=== PATIENT | female | born 1990 | race American Indian/Alaskan Native ===

== ENCOUNTER 2016-11-28 18:42 | Emergency (ER) | payer OTHER ==
[~2016-11-28] VITALS: Ht 165.1 cm; Wt 81.2 kg
[~2016-11-28 18:42] MED LIST: AMOXICILLIN500 MG PO; IBUPROFEN600 MG PO; IRON160 MG PO; PRENATAL CAPLE1 EACH PO
[2016-11-28] MEDS ORDERED: PENICILLIN V P500 MG PO (23:18)
[2016-11-28] MEDS ORDERED: TRAMADOL HCL50 MG PO (23:39)
== END 2016-11-28 23:51 | disposition home or self-care (01) ==
LOC: ED 18:42
DX: K08.89 Other specified disorders of teeth and supporting structures (principal); Z79.899 Other long term (current) drug therapy
CPT/HCPCS: 99283

== ENCOUNTER 2017-01-16 04:01 | Emergency (ER) | payer OTHER ==
[~2017-01-16] VITALS: Ht 165.1 cm; Wt 81.2 kg
[~2017-01-16 04:01] MED LIST changes: +PENICILLIN V P500 MG PO; +TRAMADOL HCL50 MG PO
--- OUTSIDE RECORDS SUMMARY | 2017-01-16 06:08 | XMS | Clinical Summary ---
Demographics + + + | Address | [address] | | | [place] [address] | + + + | Home Phone | | + + + | Preferred Language | Unknown | + + + | Marital Status | Single | + + + | Presybeterian Affiliation | NON | + + + | Race | or | + + + | Ethnic Group | Not or | + + + Author + + + | Author | NON REVENUE LOCATIONS | + + + | Organization | NON REVENUE LOCATIONS | + + + | Address | Unknown | + + + | Phone | Unavailable | + + + Support +------+ + + + + | Name | Relationship | Address | Phone | +------+ + + + + ECON | [address] | | [place] [address] | +------+ + + + + ECON | Unknown | | +------+ + + + + Care Team Providers + +------+ + | Care Loan Manager Name | Role | Phone | + +------+ + | No Pcp Per Patient | PP | Unavailable | + +------+ + Source Comments HENRY is fully live on both [facility] and [facility] In[facility] Allergies No Known Allergies Current Medications + + + +---------+------+------+-------+ | Prescription | Sig. | Disp. | Refills | Star | End | Statu | | | | | | t | Date | s | | | | | | Date | | | + + + +---------+------+------+-------+ | | Take 1-2 Tabs by | 10 Tab | 0 | 09/2 | | Activ | | HYDROcodone-acetamin | mouth every four | | | 7/20 | | e | | ophen (VICODIN) | hours as needed for | | | 12 | | | | 5-500 mg Oral tablet | moderate pain. Not | | | | | | | | to exceed 6 tablets | | | | | | | | per any 24 hour | | | | | | | | period. (Not to | | | | | | | | exceed 3250 mg of | | | | | | | | acetaminophen from | | | | | | | | all products per 24 | | | | | | | | hour period.) | | | | | | + + + +---------+------+------+-------+ | ibuprofen 600 mg | Take 1 Tab by mouth | 30 Tab | 0 | 09/2 | | Activ | | Oral tablet | every six hours as | | | 7/20 | | e | | | needed. | | | 12 | | | + + + +---------+------+------+-------+ | doxycycline | Take 1 Tab by mouth | 6 Tab | 0 | 09/2 | | Activ | | hyclate 100 mg Oral | every twelve hours. | | | 7/20 | | e | | tablet | Start by taking 2 | | | 12 | | | | | tabs tonight. | | | | | | + + + +---------+------+------+-------+ Active Problems No known active problems Social History + +-------+ +--------+------+ | Tobacco Use | Types | Packs/Day | Years | Date | | | | | Used | | + +-------+ +--------+------+ | Never Smoker | | | | | + +-------+ +--------+------+ + +---+---+---+ | Smokeless Tobacco: | | | | | Never Used | | | | + +---+---+---+ + + +---------+ + | Alcohol Use | Drinks/We | oz/Week | Comments | | | ek | | | + + +---------+ + | No | | | | + + +---------+ + + + + + | Currently | Estimated Date of Delivery | Comments | + + + + | Yes | | | + + + + + + + | Sex Assigned at | Date Recorded | | | | + + + | Not on file | | + + + Last Filed Vital Signs + + + + | Vital Sign | Reading | Time Taken | + + + + | Blood Pressure | 107/68 | 11/20/2011 4:54 PM PDT | + + + + | Pulse | 72 | 11/20/2011 4:54 PM PDT | + + + + | Temperature | 37.1 C (98.8 F) | 11/20/2011 4:05 PM PDT | + + + + | Respiratory Rate | 16 | 11/20/2011 4:54 PM PDT | + + + + | Oxygen Saturation | 100% | 11/20/2011 4:54 PM PDT | + + + + | Inhaled Oxygen | - | - | | Concentration | | | + + + + | Weight | 66.2 kg (146 lb) | 11/20/2011 12:00 PM PDT | + + + + | Height | 165.1 cm (5' 5") | 11/20/2011 12:00 PM PDT | + + + + | Body Mass Index | 24.3 | 11/20/2011 12:00 PM PDT | + + + + Plan of Treatment + + + + + | Health Maintenance | Due Date | Last Done | Comments | + + + + + | INFLUENZA VACCINE | | | | | (FLU SHOT) | 7 | | | + + + + + Results Not on filefrom Last 3 Months
== END 2017-01-16 06:25 | disposition home or self-care (01) ==
LOC: ED 04:01
DX: R42 Dizziness and giddiness (principal); R11.2 Nausea with vomiting, unspecified; Z79.899 Other long term (current) drug therapy; F17.200 Nicotine dependence, unspecified, uncomplicated
CPT/HCPCS: 80053; 81001; 84703; 85025; 96360; 96361; 99283; G0480; J7030

== ENCOUNTER 2017-07-14 16:40 | Emergency (ER) | payer OTHER ==
[~2017-07-14] VITALS: Ht 165.1 cm; Wt 79.8 kg
[2017-07-14] MEDS ORDERED: CYCLOBENZAPRINE10 MG PO (20:34)
[2017-07-14] MEDS ORDERED: DICLOFENAC SODI75 MG PO (20:34)
== END 2017-07-14 20:51 | disposition home or self-care (01) ==
LOC: ED 16:40
DX: S30.0XXA Contusion of lower back and pelvis, initial encounter (principal); S20.229A Contusion of unspecified back wall of thorax, initial encounter; F17.200 Nicotine dependence, unspecified, uncomplicated; W10.9XXA Fall (on) (from) unspecified stairs and steps, initial encounter
CPT/HCPCS: 72125; 72128; 72131; 99284

== ENCOUNTER 2018-08-24 18:51 | Emergency (ER) | payer OTHER ==
[~2018-08-24] VITALS: Ht 165.1 cm; Wt 88.0 kg
[~2018-08-24 18:51] MED LIST changes: +CYCLOBENZAPRINE10 MG PO; +DICLOFENAC SODI75 MG PO; +NORCO 5-325 TA1 EACH PO
[2018-08-24] MEDS ORDERED: PROTONIX40 MG PO (21:17)
== END 2018-08-24 21:34 | disposition home or self-care (01) ==
LOC: ED 18:51
DX: R10.12 Left upper quadrant pain (principal); F10.10 Alcohol abuse, uncomplicated; Y90.0 Blood alcohol level of less than 20 mg/100 ml; F17.200 Nicotine dependence, unspecified, uncomplicated
CPT/HCPCS: 80053; 81001; 83690; 84703; 85025; 96365; 96366; 99283-25; G0480; J3411; J7030

== ENCOUNTER 2019-09-06 20:10 | Emergency (ER) | payer OTHER ==
[~2019-09-06] VITALS: Ht 165.1 cm; Wt 77.1 kg
--- OUTSIDE RECORDS SUMMARY | ~2019-09-06 | XMS | Encounter Summary ---
Demographics + + + | Address | [address] | | | [place] [address] | + + + | Home Phone | | + + + | Preferred Language | Unknown | + + + | Marital Status | Single | + + + | Jainism Affiliation | NON | + + + | Race | or | + + + | Ethnic Group | Not or | + + + Author + + + | Author | [facility] [employer] [facility] | + + + | Organization | [facility] [employer] [facility] | + + + | Address | Unknown | + + + | Phone | Unavailable | + + + Support + + + + + | Name | Relationship | Address | Phone | + + + + + | Andrea Warrenfabiánelbree | ECON | [address] | | | | | [place] [address] | | + + + + + | Art Gauthier | ECON | Unknown | | + + + + + Care Team Providers + +------+ + | Care Senior Asset Manager Name | Role | Phone | + +------+ + | No Pcp Per Patient | PCP | Unavailable | + +------+ + Reason for Visit + + + | Reason | Comments | + + + | Lab findings, | | | teaching, guidance, | | | and counseling | | + + + Encounter Details +--------+ + + + + | Date | Type | Department | Care Team | Description | +--------+ + + + + | 11/18/ | [facility]phone [facility] | Mralys Breaux | Lab findings, | | 2011 | | [facility] | MD Bree [address] [address] | teaching, guidance, | | | | [address] | and counseling | | | | [address] | [place], [place] | | | | | Laila, [address] [place] [address] | [address] | | | | | [place], [place] | [phone] | | | | | [address] | | | | | | [phone] | | | +--------+ + + + + Social History + +-------+ +--------+------+ | Tobacco Use | Types | Packs/Day | Years | Date | | | | | Used | | + +-------+ +--------+------+ | Never Assessed | | | | | + +-------+ +--------+------+ + + + | Sex Assigned at | Date Recorded | | | | + + + | Not on file | | + + + + + + + | Job Start Date | Occupation | Industry | + + + + | Not on file | Not on file | Not on file | + + + + + + + + | Travel History | Travel Start | Travel End | + + + + + + | No recent travel history available. | + + documented as of this encounter Plan of Treatment Not on filedocumented as of this encounter Visit Diagnoses Not on filedocumented in this encounter"
--- OUTSIDE RECORDS SUMMARY | ~2019-09-06 | XMS | Encounter Summary ---
Demographics + + + | Address | [address] | | | [place] [address] | + + + | Home Phone | | + + + | Preferred Language | Unknown | + + + | Marital Status | Single | + + + | Advent Affiliation | NON | + + + | Race | or | + + + | Ethnic Group | Not or | + + + Author + + + | Author | [facility] [employer] [facility] | + + + | Organization | [facility] [employer] [facility] | + + + | Address | Unknown | + + + | Phone | Unavailable | + + + Support + + + + + | Name | Relationship | Address | Phone | + + + + + | Andrea Warrenfaibánelbree | ECON | [address] | | | | | [place] [address] | | + + + + + | Art Gauthier | ECON | Unknown | | + + + + + Care Team Providers + +------+ + | Care Filler Spreader Name | Role | Phone | + +------+ + | No Pcp Per Patient | PCP | Unavailable | + +------+ + Reason for Visit AUTH/CERT +--------+--------+ + + + + | Status | Reason | Specialty | Diagnoses / | Referred By | Referred To | | | | | Procedures | Contact | Contact | +--------+--------+ + + + + | Closed | | | | | | +--------+--------+ + + + + Encounter Details +--------+ + + + + | Date | Type | Department | Care Team | Description | +--------+ + + + + | 11/19/ | Anesthesia | 4N INTRA OP 3161 | Naeem Crocker MD | | | 2011 | Event | [address] | [address] | | | | | [place] | [place], | | | | | Ambulatory Surgery | [place] [address] | | | | | Admitting Desk | [phone] | | | | | Located on the [facility] | | | | | | floor, Room 4519 | Jyoti Morrissey MD | | | | | [place], [place] | [address] | | | | | [address] | [address] | | | | | | [place], [place] | | | | | | [address] | | | | | | [phone] | | | | | | | | +--------+ + + + + Anesthesia Record + + + + + | Procedure Name | Responsible | Anesthesia Start | Anesthesia Stop Time | | | Anesthesiologist | Time | | + + + + + | DILATION AND | Naeem Crocker MD | 11/20/11 1359 | 11/20/11 4649 | | EVACUATION (N/A | | | | | Vagina) | | | | + + + + + +----+---+ + + | Da | T | Event | Comment | | te | i | | | | | m | | | | | e | | | +----+---+ + + | 09 | 1 | Pt. Check | Prior to anesthesia start, pt. Identified, examined, chart | | /2 | 3 | | reviewed, PARQ held, anesthetic plan made or approved by | | 8/ | 3 | | attending anesthesiologist. NPO status confirmed as appropriate | | 20 | 5 | | for procedure Preoperative evaluation: unchanged | | 12 | | | | +----+---+ + + | | 1 | Eq Check | Anesthesia machine checked Equipment verified | | | 3 | | | | | 5 | | | | | 9 | | | +----+---+ + + | | 1 | An Start | | | | 3 | | | | | 5 | | | | | 9 | | | +----+---+ + + | | 1 | An Start | | | | 4 | Data | | | | 0 | | | | | 5 | | | +----+---+ + + | | 1 | Vitals | Monitors applied Vital signs checked Patient ready for anesthesia | | | 4 | Checked | | | | 1 | | | | | 1 | | | +----+---+ + + | | 1 | Ready | | | | 4 | | | | | 1 | | | | | 1 | | | +----+---+ + + | | 1 | Abx held | | | | 4 | Not Ordered | | | | 1 | | | | | 5 | | | +----+---+ + + | | 1 | Timeout | | | | 4 | | | | | 1 | | | | | 5 | | | +----+---+ + + | | 1 | Incision | | | | 4 | | | | | 1 | | | | | 7 | | | +----+---+ + + | | 1 | Surgery end | | | | 4 | | | | | 4 | | | | | 9 | | | +----+---+ + + | | 1 | an naeem now | | | | 4 | | | | | 5 | | | | | 2 | | | +----+---+ + + | | 1 | an stop | | | | 4 | data | | | | 5 | | | | | 2 | | | +----+---+ + + | | 1 | Anesthesia | | | | 4 | End | | | | 5 | | | | | 9 | | | +----+---+ + + +------+ | Meds | +------+ + + + | Name | Total | + + + | midazolam | 3 mg | + + + | propofol INF | 456,780 mcg | + + + | propofol | 90 mg | + + + | methylergonovine | 0.4 mg | + + + | misoprostol | 800 mcg | + + + | LR | 900 mL | + + + + + | Name | + + | O2 Flow Rate (Total Liters) | + + + + | No blood administrations on file. | + + +--------+ + + + | Type | Details | Placement | Removal | +--------+ + + + | RETIRE | 11/20/11; 1245; 11/20/11; 1712; | 11/20/11 1245 by | 09/28/12 1712 by | | D - | No; 20; Right; Antecubital; | Lucille Landers | Aylin Cheek RN | | Periph | Lidocaine; No; Positive; Therapy | CLAUDIA Zheng | | | robson | completed | | | | Line | | | | +--------+ + + + documented in this encounter Social History + +-------+ +--------+------+ | Tobacco [...] Visit Diagnoses Not on filedocumented in this encounter Administered Medications + + + +------+------+------+ | Medication Order | MAR | Action | Dose | Rate | Site | | | Action | Date | | | | + + + +------+------+------+ | lactated ringers IV | given by | 11/20/19 | mL | | | | INTRAPROCEDURE CONTINUOUS PRN, | | 12 2:55 | | | | | Starting 11/20/11 at 1359, | anesthes | PM PDT | | | | | Until 11/20/11 at 1459 | iology | | | | | + + + +------+------+------+ +---------+ +----+---+---+ | New Bag | 11/20/19 | mL | | | | | 12 1:59 | | | | | | PM PDT | | | | +---------+ +----+---+---+ +---+---+ | | | +---+---+ + +-------+ +--------+---+---+ | methylergonovine (aka | Given | 11/20/19 | 0.2 mg | | | | METHERGINE) injection | | 12 2:40 | | | | | INTRAPROCEDURE PRN, Starting Fri | | PM PDT | | | | | 11/20/11 at 1432, Until Fri | | | | | | | 11/20/11 at 1452 | | | | | | + +-------+ +--------+---+---+ +-------+ +--------+---+---+ | Given | 11/20/19 | 0.2 mg | | | | | 12 2:32 | | | | | | PM PDT | | | | +-------+ +--------+---+---+ +---+---+ | | | +---+---+ + +-------+ +------+---+---+ | midazolam (aka VERSED) | Given | 11/20/19 | 3 mg | | | | injection INTRAPROCEDURE PRN, | | 12 1:59 | | | | | Starting Wed11/20/11 at 1359, | | PM PDT | | | | | Until Wed11/20/11 at 1452, | | | | | | | sedation | | | | | | + +-------+ +------+---+---+ +---+---+ | | | +---+---+ + +-------+ +---------+---+---+ | misoprostol (aka CYTOTEC) | Given | 11/20/19 | 800 mcg | | | | tablet INTRAPROCEDURE PRN, | | 12 2:43 | | | | | Starting 11/20/11 at 1443, | | PM PDT | | | | | Until 11/20/11 at 1452 | | | | | | + +-------+ +---------+---+---+ +---+---+ | | | +---+---+ + + + + +--------+---+ | propofol (aka TAERIVAN) | Rate/Dos | 11/20/19 | 150 | 59.58 | | | injection INTRAPROCEDURE | e Change | 12 2:19 | mcg/kg/m | mL/hr | | | CONTINUOUS PRN, Starting Fri | | PM PDT | in | | | | 11/20/11 at 1405, Until Fri | | | | | | | 11/20/11 at 1452 | | | | | | + + + + +--------+---+ + + + +--------+---+ | Rate/Dose Change | 11/20/19 | 200 | 79.44 | | | | 12 2:12 | mcg/kg/m | mL/hr | | | | PM PDT | in | | | + + + +--------+---+ | New Bag | 11/20/19 | 250 | 99.3 | | | | 12 2:05 | mcg/kg/m | mL/hr | | | | PM PDT | in | | | + + + +--------+---+ +---+---+ | | | +---+---+ + +-------+ +-------+---+---+ | propofol INTRAPROCEDURE PRN, | Given | 11/20/19 | 30 mg | | | | Starting Wed11/20/11 at 1408, | | 12 2:22 | | | | | Until Wed11/20/11 at 1452 | | PM PDT | | | | + +-------+ +-------+---+---+ +-------+ +-------+---+---+ | Given | 11/20/19 | 40 mg | | | | | 12 2:12 | | | | | | PM PDT | | | | +-------+ +-------+---+---+ | Given | 11/20/19 | 20 mg | | | | | 12 2:08 | | | | | | PM PDT | | | | +-------+ +-------+---+---+ +---+---+ | | | +---+---+ documented in this encounter"
--- OUTSIDE RECORDS SUMMARY | ~2019-09-06 | XMS | Encounter Summary ---
Demographics + + + | Address | [address] | | | [place] [address] | + + + | Home Phone | | + + + | Preferred Language | Unknown | + + + | Marital Status | Single | + + + | Hinduism Affiliation | NON | + + + | Race | or | + + + | Ethnic Group | Not or | + + + Author + + + | Author | [facility] | + + + | Organization | [facility] [employer] [facility] | + + + | Address | Unknown | + + + | Phone | Unavailable | + + + Support + + + + + | Name | Relationship | Address | Phone | + + + + + | Andrea Warrenfabiánelbree | ECON | [address] | | | | | [place] [address] | | + + + + + | Art Gauthier | ECON | Unknown | | + + + + + Care Team Providers + +------+ + | Care Hot Knife Foxing Cutter Name | Role | Phone | + [...] | Event | [address] | [address] | | | | | [place] | [place], | | | | | Ambulatory Surgery | [place] [address] | | | | | Admitting Desk | [phone] | | | | | Located on the [facility] | | | | | | floor, Room 4519 | Jyoti Morrissey MD | | | | | [place], [place] | [address] | | | | | [address] | [address] | | | | | | [place], [place] | | | | | | [address] | | | | | | [phone] | | | | | | | | +--------+ + + + + Anesthesia Record + + + + + | Procedure Name | Responsible | Anesthesia Start | Anesthesia Stop Time | | | Anesthesiologist | Time | | + + + + + | DILATION AND | Naeem Crocker MD | 11/20/11 1359 | 11/20/11 3681 | | EVACUATION (N/A | | | [...]
--- OUTSIDE RECORDS SUMMARY | ~2019-09-06 | XMS | Encounter Summary ---
Demographics + + + | Address | [address] | | | [place] [address] | + + + | Home Phone | | + + + | Preferred Language | Unknown | + + + | Marital Status | Single | + + + | Gnosticism Affiliation | NON | + + + | Race | or | + + + | Ethnic Group | Not or | + + + Author + + + | Author | [facility] | + + + | Organization | [facility] [employer] [facility] | + + + | Address | Unknown | + + + | Phone | Unavailable | + + + Support + + + + + | Name | Relationship | Address | Phone | + + + + + | Andrea Brianafabiánelbree | ECON | [address] | | | | | [place] [address] | | + + + + + | Art Gauthier | ECON | Unknown | | + + + + + Care Team Providers + +------+ + | Care Chrome Cleaner Name | Role | Phone | + +------+ + | No Pcp Per Patient | PCP | Unavailable | + +------+ + Reason for Referral Consult to [place] (Routine) +--------+--------+ + + + + | Status | Reason | Specialty | Diagnoses / | Referred By | Referred To | | | | | Procedures | Contact | Contact | +--------+--------+ + + + + | Closed | | Obstetrics & | Diagnoses | Sae[place], | [facility] | | | | Gynecology | | Marlys Edwards, | [address] | | | | | test | MD [address] | [address] | | | | | positive | [address] [place] | Aaron | | | | | Procedures | [address] | [place]a, [facility] | | | | | REQUEST TO | [place], [place] | floor | | | | | SURGERY | [address] | [place], [place] | | | | | PRODUCT ADVISOR | Phone: | [address] | | | | | | [phone] | Phone: | | | | | | Fax: | [phone] | | | | | | [phone] | Fax: | | | | | | | [phone] | +--------+--------+ + + + + Reason for Visit + + + | Reason | Comments | + + + | Appointment | | + + + Encounter Details +--------+ + + + + | Date | Type | Department | Care Team | Description | +--------+ + + + + | 11/18/ | [facility]phone | [facility] | Marlys Breaux | Appointment | | 2011 | | [facility] [place] | MD Bree [address] [facility] | | | | | Pavilion [address] | [facility] | | | | | [address] | [place], [place] | | | | | Pavilion, [facility] floor | [address] | | | | | [place], [place] | [phone] | | | | | [address] | | | | | | [phone] | | | +--------+ + + + [...] Not on filedocumented as of this encounter Results TYPE AND SCREEN (11/19/2011 10:57 AM PDT) + + + + + + | Component | Value | Ref Range | Performed | Pathologist | | | | | At | Signature | + + + + + + | ABO Group | O | | [facility] | | | | | | DEPARTMENT | | | | | | OF | | | | | | PATHOLOGY | | + + + + + + | Rh Type | Positive | | [facility] | | | | | | DEPARTMENT | | | | | | OF | | | | | | PATHOLOGY | | + + + + + + | Antibody | Negative | | [facility] | | | Screen | | | DEPARTMENT | | | | | | OF | | | | | | PATHOLOGY | | + + + + + + + + | Specimen | + + | Blood - Blood | + + + + + + + | Performing | Address | City/State/Zipcode | Phone Number | | Organization | | | | + + + + + | [facility] | [address] | [place] [address] | | | PATHOLOGY | [address] | | | + + + + + CBC ONLY (11/19/2011 10:57 AM PDT) + + + + + + | Component | Value | Ref Range | Performed | Pathologist | | | | | At | Signature | + + + + + + | WHITE CELL | 6.3 | 4.4 - 11.0 K/cu | [facility] | | | COUNT | | mm | DEPARTMENT | | | | | | OF | | | | | | PATHOLOGY | | + + + + + + | RED CELL | 3.86 (L) | 4.00 - 5.20 | [facility] | | | COUNT | | M/cu mm | DEPARTMENT | | | | | | OF | | | | | | PATHOLOGY | | + + + + + + | HEMOGLOBIN | 8.8 (L) | 12.0 - 16.0 | [facility] | | | | | g/dL | DEPARTMENT | | | | | | OF | | | | | | PATHOLOGY | | + + + + + + | HEMATOCRIT | 27.1 (L) | 36.0 - 46.0 % | [facility] | | | | | | DEPARTMENT | | | | | | OF | | | | | | PATHOLOGY | | + + + + + + | MCV | 70.3 (L) | 80.0 - 96.0 fL | [facility] | | | | | | DEPARTMENT | | | | | | OF | | | | | | PATHOLOGY | | + + + + + + | MCHC | 32.4 (L) | 33.4 - 35.5 | [facility] | | | | | g/dL | DEPARTMENT | | | | | | OF | | | | | | PATHOLOGY | | + + + + + + | RDW | 22.2 (H) | 11.5 - 15.0 % | [facility] | | | | | | DEPARTMENT | | | | | | OF | | | | | | PATHOLOGY | | + + + + + + | PLATELET | Clumped. | 150 - 400 K/cu | [facility] | | | COUNT | | mm | DEPARTMENT | | | | | | OF | | | | | | PATHOLOGY | | + + + + + + | CBC | Platelet Clumping | | [facility] | | | COMMENTS | Phoned. | | DEPARTMENT | | | | | | OF | | | | | | PATHOLOGY | | + + + + + + + + | Specimen | + + | Blood - Blood | + + + + + | Narrative | Performed At | + + + | * Corrected 11/19/11 15:23: MPV, prev report: 11.6 * Corrected | [facility] | | 11/19/11 15:27: HPANEL COMMENTS, prev report: Not reported | DEPARTMENT OF | | | PATHOLOGY | + + + + + + + + | Performing | Address | City/State/Zipcode | Phone Number | | Organization | | | | + + + + + | [facility] | [address] | [place] [address] | | | PATHOLOGY | [address] | | | + + + + + documented in this encounter Visit Diagnoses + + | Diagnosis | + + | test positive - Primary examination or test, positive result | + + documented in this encounter"
--- OUTSIDE RECORDS SUMMARY | ~2019-09-06 | XMS | Encounter Summary ---
Demographics + + + | Address | [address] | | | [place] [address] | + + + | Home Phone | | + + + | Preferred Language | Unknown | + + + | Marital Status | Single | + + + | Roman Catholic Affiliation | NON | + + + | Race | or | + + + | Ethnic Group | Not or | + + + Author + + + | Author | [facility] [employer] [facility] | + + + | Organization | [facility] [employer] [facility] | + + + | Address | Unknown | + + + | Phone | Unavailable | + + + Support + + + + + | Name | Relationship | Address | Phone | + + + + + | Andrea Brianafabiánelbree | ECON | [address] | | | | | [place] [address] | | + + + + + | Art Gauthier | ECON | Unknown | | + + + + + Care Team Providers + +------+ + | Care Etcher Apprentice Photoengraving Name | Role | Phone | + [...] | Procedures | [address] | [place], [facility] | | | | | REQUEST TO | [place], [place] | floor | | | | | SURGERY | [address] | [place], [place] | | | | | DIALYSIS EQUIPMENT TECHNICIAN | Phone: | [address] | | | | | | [phone] | Phone: | | | | | | Fax: | [phone] | | | | | | [phone] | Fax: | | | | | | | [phone] | +--------+--------+ + + + + Reason [...] | | 2011 | | [facility] [place] | MD Bree [address] [facility] | | | | | [address] | [facility] | | | | | [address] | [place], [place] | | | | | Pavilion, [facility] floor | [address] | | | | | [place], [place] | [phone] | | | | | [address] | | | | | | [phone] | | | +--------+ + + + [...] | + + + + + | [facility] | [address] | [place] [address] | | | PATHOLOGY | [address] [...] | + + + + + | [facility] | [address] | [place] [address] | | | PATHOLOGY | [address] | | | + + + + + documented in this encounter Visit Diagnoses + + | Diagnosis | + + | test positive - Primary examination or test, positive result | + + documented in this encounter"
--- OUTSIDE RECORDS SUMMARY | ~2019-09-06 | XMS | Encounter Summary ---
Demographics + + + | Address | [address] | | | [place] [address] | + + + | Home Phone | | + + + | Preferred Language | Unknown | + + + | Marital Status | Single | + + + | Faith Affiliation | NON | + + + | Race | or | + + + | Ethnic Group | Not or | + + + Author + + + | Author | [facility] [employer] [facility] | + + + | Organization | [facility] [employer] [facility] | + + + | Address | Unknown | + + + | Phone | Unavailable | + + + Support + + + + + | Name | Relationship | Address | Phone | + + + + + | Andrea Brianafabiánelbree | ECON | [address] | | | | | [place] [address] | | + + + + + | Art Gauthier | ECON | Unknown | | + + + + + Care Team Providers + +------+ + | Care Practice Representative Name | Role | Phone | + +------+ + | No Pcp Per Patient | PCP | Unavailable | + +------+ + Encounter Details +--------+------+ + + + | Date | Type | Department | Care Team | Description | +--------+------+ + + + | 11/18/ | Lab | [facility] at [facility] | | test | | 2011 | | [address] | | positive | | | | [facility] | | | | | | [place], [address] floor | | | | | | [place], [place] | | | | | | [address] | | | | | | [phone] | | | +--------+------+ + + + Social History + +-------+ [...] Not on filedocumented as of this encounter Procedures + +--------+ + + + | Procedure Name | Priori | Date/Time | Associated Diagnosis | Comments | | | ty | | | | + +--------+ + + + | CBC ONLY | Routin | 11/19/2011 | test | Results for this | | | e | 10:57 AM | positive | procedure are in the | | | | PDT | | results section. | + +--------+ + + + | TYPE AND SCREEN | Routin | 11/19/2011 | test | Results for this | | | e | 10:57 AM | positive | procedure are in the | | | | PDT | | results section. | + +--------+ + + + documented in this encounter Results TYPE AND SCREEN (11/19/2011 [...] | + + + + + | [facility] DEPARTMENT OF | [address] | [place] [address] | | | PATHOLOGY | [address] [...] Corrected | [facility] | | 11/19/11 15:27: JUAN C [place], prev report: Not reported | DEPARTMENT OF | | | PATHOLOGY | + + + + + + + + | Performing | Address | City/State/Zipcode | Phone Number | | Organization | | | | + + + + + | [facility] | [address] | [place] [address] | | | PATHOLOGY | [address] | | | + + + + + documented in this encounter Visit Diagnoses + + | Diagnosis | + + | test positive examination or test, positive result | + + documented in this encounter"
--- OUTSIDE RECORDS SUMMARY | ~2019-09-06 | XMS | Encounter Summary ---
Demographics + + + | Address | [address] | | | [place] [address] | + + + | Home Phone | | + + + | Preferred Language | Unknown | + + + | Marital Status | Single | + + + | Episcopal Affiliation | NON | + + + | Race | or | + + + | Ethnic Group | Not or | + + + Author + + + | Author | [facility] [employer] [facility] | + + + | Organization | [facility] [employer] [facility] | + + + | Address | Unknown | + + + | Phone | Unavailable | + + + Support + + + + + | Name | Relationship | Address | Phone | + + + + + | Andrea Warrenfabiánelbree | ECON | [address] | | | | | [place] [address] | | + + + + + | Art Gauthier | ECON | Unknown | | + + + + + Care Team Providers + +------+ + | Care Icu Rn Name | Role | Phone | + [...] [facility] | Marlys Breaux | Lab findings, | | 2011 | | [facility] [place] | MD Bree [address] | teaching, guidance, | | | | [place] [address] | and counseling | | | | [address] | [place], [place] | | | | | [place], [address] [place] [address] | [address] | | | | | [place], [place] | [phone] | | | | | [address] | | | | | | [phone] | | | +--------+ + + + [...]
--- OUTSIDE RECORDS SUMMARY | ~2019-09-06 | XMS | Encounter Summary ---
Demographics + + + | Address | [address] | | | [place] [address] | + + + | Home Phone [...] Author + + + | Author | [facility] [employer] [facility] | + + + | Organization | [facility] [employer] [facility] | + + + | Address | Unknown | + + + | Phone | Unavailable | + + + Support + + + + + | Name | Relationship | Address | Phone | + + + + + | Andrea Brianafabiánelbree | ECON | [address] | | | | | [place] [address] | | + + + + + | Art Gauthier | ECON | Unknown | | + + + + + Care Team Providers + +------+ + | Care Operator Weapon Locating Radar Name | Role | Phone | + +------+ + | No Pcp Per Patient | PCP | Unavailable | + +------+ + Encounter Details +--------+ + + + + | Date | Type | Department | Care Team | Description | +--------+ + + + + | 11/18/ | Document-Sc | Health Information | Unknown . | | | 2011 | anned | Services [address] | | | | | | [address] | | | | | | Mailcode: [id number] | | | | | | [facility] | | | | | | [place], [place] | | | | | | [address] | | | | | | [phone] | | | +--------+ + + + [...]
--- OUTSIDE RECORDS SUMMARY | ~2019-09-06 | XMS | Clinical Summary ---
Demographics + + + | Address | [address] | | | [place] [address] | + + + | Home Phone | | + + + | Preferred Language | Unknown | + + + | Marital Status | Single | + + + | Pentecostalism Affiliation | NON | + + + [...] + + + + + | Andrea Dumont | ECON | [address] | | | | | [place] [address] | | + + + + + | Art Shieldsyesy | ECON | Unknown | | + + + + + Care Team Providers + +------+ + | Care Telephonic Rn Name | Role | Phone | + +------+ + | No Pcp Per Patient | PCP | Unavailable | + +------+ + Source Comments HENRY is fully live on both [facility] and [facility] Allergies No Known Allergies Medications + + + +---------+------+------+-------+ | Medication | Sig | Dispensed | Refills | Star | End | [...] | + + + +---------+------+------+-------+ Active Problems + + + | | Comments | + + + | Yes | | + + + No known active problems Social History + [...] + +---------+ + | Alcohol Use | Drinks/Week | oz/Week | Comments | + + +---------+ + | No | | | | + + +---------+ + + + + | | Comments | + + + | Yes | | + + + + + [...] recent travel history available. | + + Last Filed Vital Signs + + + + + | Vital Sign | Reading | Time Taken | Comments | + + + + + | Blood Pressure | 107/68 | 11/20/2011 4:54 PM | | | | | PDT | | + + + + + | Pulse | 72 | 11/20/2011 4:54 PM | | | | | PDT | | + + + + + | Temperature | 37.1 C (98.8 F) | 11/20/2011 4:05 PM | | | | | PDT | | + + + + + | Respiratory Rate | 16 | 11/20/2011 4:54 PM | | | | | PDT | | + + + + + | Oxygen Saturation | 100% | 11/20/2011 4:54 PM | | | | | PDT | | + + + + + | Inhaled Oxygen | - | - | | | Concentration | | | | + + + + + | Weight | 66.2 kg (146 lb) | 11/20/2011 12:00 PM | | | | | PDT | | + + + + + | Height | 165.1 cm (5' 5") | 11/20/2011 12:00 PM | | | | | PDT | | + + + + + | Body Mass Index | 24.3 | 11/20/2011 12:00 PM | | | | | PDT | | + + + + + Plan of Treatment + + + + + | Health Maintenance | Due Date | Last Done | Comments | + + + + + | Influenza (Flu) | | | | | vaccination (#1) | 9 | | | + + + + + | Pneumococcal | Aged Out | | No longer eligible | | vaccination | | | based on patient's | | | | | age to complete this | | | | | topic | + + + + + Results Not on filefrom Last 3 Months Insurance + +--------+ +--------+ + +--------+ | Payer | Benefi | Subscriber | Effect | Phone | Address | Type | | | t Plan | ID | minnie | | | | | | / | | Dates | | | | | | Group | | | | | | + +--------+ +--------+ + +--------+ | [place] | OHP | xxxxxxxx | 10/27/19 | [phone] | [address] | | | PLUS | | 12-Pre | 6 | [address] | id | | | OPEN | | sent | | [place], [place] | | | | CARD | | | | [id number] | | + +--------+ +--------+ + +--------+ + +--------+ +--------+ + + | Guarantor Name | Accoun | Relation to | Date | Phone | Billing Address | | | t Type | Patient | of | | | | | | | | | | + +--------+ +--------+ + + | Milla Valenzuela | Person | Self [birth year] | [address] | | [place] | al/Fam | | 1991 | [phone] | [place] [address] | | | sonam | | | 9 (Home) | | + +--------+ +--------+ + + Advance Directives + + + + + | Code Status | Date | Date | Comments | | | Activated | Inactivated | | + + + + + | Full Code | 11/20/2011 | 11/20/2011 | | | | 12:34 PM | 11:28 PM | | + + + + +
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
--- OUTSIDE RECORDS SUMMARY | ~2019-09-06 | XMS | Clinical Summary ---
Demographics + + + | Address | [address] | | | [place] [address] | + + + | Home Phone | | + + + | Preferred Language | Unknown | + + + | Marital Status | Single | + + + | Judaism Affiliation | NON | + + + [...] [address] | | | | | [place] [address] | | + + + + + | Art Shieldsyesy | ECON | Unknown | | + + + + + Care Team Providers + +------+ + | Care Education Teacher Name | Role | Phone | + +------+ + | No Pcp Per Patient | PCP | Unavailable | + +------+ + Source Comments [facility] is fully live on both [facility] and [facility] Allergies No Known Allergies Medications + + [...] | [facility] | xxxxxxxx | 10/27/19 | [phone] | [address] | [employer] | | | PLUS | | 12-Pre | 6 | [address] | id | | | OPEN | | sent | | [place], [place] | | | | CARD | | | | [phone] | | + +--------+ +--------+ + +--------+ + +--------+ +--------+ + + | Guarantor Name | Accoun | Relation to | Date | Phone | Billing Address | | | t Type | Patient | of | | | | | | | | | | + +--------+ +--------+ + + | Milla Valenzuela | Person | Self | [birth year] | [address] | | [place] | al/Fam | | 1991 | [phone] | [place] [address] | | | sonam | | | [...]
--- OUTSIDE RECORDS SUMMARY | ~2019-09-06 | XMS | Encounter Summary ---
Demographics + + + | Address | [address] | | | [place] [address] | + + + | Home Phone | | + + + | Preferred Language | Unknown | + + + | Marital Status | Single | + + + | Islam Affiliation | NON | + + + | Race | or | + + + | Ethnic Group | Not or | + + + Author + + + | Author | [facility] | + + + | Organization | [facility] | + + + | Address | Unknown | + + + | Phone | Unavailable | + + + Support + + + + + | Name | Relationship | Address | Phone | + + + + + | Andrea Warrenfabiánelbree | ECON | [address] | | | | | [place] [address] | | + + + + + | Art Gauthier | ECON | Unknown | | + + + + + Care Team Providers + +------+ + | Care Violin Tutor Name | Role | Phone | + [...] + + + + | 11/19/ | Hospital | [address] | [facility] | | | 2011 | Encounter | [address] | MD Dede,[address] | | | | | [address] | [address] | | | | | [place]ll[place] | [place], [place] | | | | | (MNP/[facility]) | [address] | | | | | [place], [place] | [phone] | | | | | [address] | | | | | | [phone] | | | +--------+ + + + [...] + + + documented in this encounter Discharge Instructions Instructions Lucille Serrano, CLAUDIA - 11/20/2011FTERCARE INSTRUCTIONS 1. It is best to rest for the first 24 hours. Avoid heavy lifting (>20 lbs) and strenuous exercise. 2. Do not take a bath, use a hot tub or go swimming for 1 week after the procedure. You m ay take showers. 3. Do not drive if you are using narcotic pain medications. 4. Finish the antibiotic medication that was provided to you to help prevent infection. 5. Do not put anything in your vagina for 1 week following the procedure. This includes ta mpons, [...] regular periods it can be heavier or weapons electrical engineering officer, longer or s horter than normal. This will regulate itself within a month or two. You can get at any time if you are not using control, even if you aren t having regular periods. Start your control as instructed by your doctor. Emotional Support It is normal to have a wide range of feelings about having an . It can be a stress ful time. Confidential pre- and post- counseling is available at the [place] for [facility]. You may call Yady Rodriguez RN, FOREIGN DIPLOMAT at [phone] to schedule an appointment. Additionally, these free, confidential resources are available to you for support: 1. Backline [phone], www.[email or web address] 2. Exhale [phone], [email or web address].org Call us if you experience any of [...] the procedure. During regular business hours, call [phone] to speak to the Family Planning Coordinato r. After hours or weekends, call [phone] ([place] carbon furnace operator) and ask to speak to the physicia n financial foundations associate for General Obstetrics and Gynecology. Remember You are under the influence of medications. DO NOT drive, drink alcohol, sign legal documen ts or make major decisions for at least 24 hours and while taking narcotics. Diet and Medications You may return to your normal diet and take your normal medications unless otherwise instru cted by your physician. documented in this encounter Medications at Time of Discharge + + + +---------+ + + | Medication | Sig | Dispensed | Refills | Start | End Date | | | | | | Date | | + + + +---------+ + + | doxycycline | Take 1 Tab by mouth | 6 Tab | 0 | 11/19/19 | | | hyclate 100 mg Oral | every twelve hours. | | | 12 | | | tablet | Start by taking 2 | | | | | | | tabs tonight. | | | | | + + + +---------+ + + | | Take 1-2 Tabs by | 10 Tab | 0 | 11/19/19 | | | HYDROcodone-acetamin | mouth every four | | | 12 | | | ophen (VICODIN) | hours as needed for | | | | | | 5-500 mg Oral [...] hour period.) | | | | | + + + +---------+ + + | ibuprofen 600 mg | Take 1 Tab by mouth | 30 Tab | 0 | 11/19/19 | | | Oral tablet | every six hours as | | | 12 | | | | needed. | | | | | + + + +---------+ + + documented as of this encounter Plan of Treatment Not on filedocumented as of this encounter Procedures + +--------+ + + + | Procedure Name | Priori | Date/Time | Associated Diagnosis | Comments | | | ty | | | | + +--------+ + + + | PROCEDURE NOTE | Routin | 03/29/2015 | | Results for this | | | e | 1:09 AM | | procedure are in the | | | | PST | | results section. | + +--------+ + + + | PROCEDURE NOTE | Routin | 03/29/2015 | | Results for this | | | e | 1:02 AM | | procedure are in the | | | | PST | | results section. | + +--------+ + + + | (INACTIVE) DILATION | Electi | 11/20/2011 | | | | AND CURRETAGE LESS | ve | 2:02 PM | examination or test, | | | THAN 15 WEEKS | Surgic | PDT | positive result | | | GESTATION | al | | Complete legally | | | | | | induced | | | | | | without mention of | | | | | | complication | | + +--------+ + + + | SURG PATH - PRODUCTS | Routin | 11/20/2011 | | Results for this | | OF CONCEPTION | e | | | procedure are in the | | | | | | results section. | + +--------+ + + + documented in this encounter Results PROCEDURE NOTE (03/29/2015 1:09 AM PST)PROCEDURE NOTE (03/29/2015 1:02 AM PST) + + | Transcriptions | + + | Other, Faculty - 11/25/2011 11:29 AM PDT | + + SURG PATH - PRODUCTS OF CONCEPTION (11/20/2011) + + + + + + | Component | Value | Ref Range | Performed | Pathologist | | | | | At | Signature | + + + + + + | SURG PATH - | SOURCE OF SPECIMEN:A | | [facility] | | | PRODUCTS | Products of Conception | | DEPARTMENT | | | OF | Final Pathologic | | OF | | | CONCEPTION | Diagnosis:Products of | | PATHOLOGY | | | | conception, dilatation | | | | | | and curettage: - | | | | | | parts identified | | | | | | Case seen | | | | | | by:Alexis | | | | | | Levi/Student | | | | | | Mumtaz. Eve | | | | | | Micki | | | | | | Lauri/PathologistT: | | | | | | 2:aimee Clinical | | | | | | History:The patient is a | | | | | | 21-year-old female with | | | | | | termination at 15 and | | | | | | 3/7 weeks. Gross | | | | | | Description:Received is | | | | | | 1 specimen fresh in a | | | | | | container labeled with | | | | | | the patient | | | | | | name(initials SM) and | | | | | | medical record number | | | | | | [id number]. Received are | | | | | | multiplesoft, | | | | | | red-purple tissues | | | | | | weighing 210 grams and | | | | | | measuring 14 x 14 x 2 cm | | | | | | inaggregate. Gross | | | | | | villi and parts | | | | | | are identified. | | | | | | Bilateral feet | | | | | | areidentified measuring | | | | | | 1.8 cm in length, | | | | | | consistent with | | | | | | gestational age of15 | | | | | | weeks. System Manager | | | | | | sections are submitted. | | | | | | Cassette Index:A1, | | | | | | POCKRK:tp My | | | | | | electronic signature | | | | | | indicates that I have | | | | | | personally reviewed | | | | | | alldiagnostic slides, | | | | | | the gross and/or | | | | | | microscopic portion of | | | | | | thisreport and | | | | | | formulated the final | | | | | | diagnosis. | | | | | | Rendering Diagnostician: | | | | | | Luanne Sweet | | | | | | Pericoi | | | | | | emmanuel Signed 11/25/2011 | | | | | | 12:20PM | | | | + + + + + + + + | Specimen | + + | | + + + + + + + | Performing | Address | City/State/Zipcode | Phone Number | | Organization | | | | + + + + + | [facility] | [address] | [place] [address] | | | PATHOLOGY | [address] | | | + + + + + documented in this encounter Visit Diagnoses Not on filedocumented in this encounter Administered Medications + +---------+ +--------+--------+------+ | Medication Order | MAR | Action | Dose | Rate | Site | | | Action | Date | | | | + +---------+ +--------+--------+------+ | fentaNYL citrate (PF) (aka | New Bag | 11/20/19 | 25 mcg | mL/hr | | | SUBLIMAZE) injection 25 mcg 25 | | 12 3:29 | | | | | mcg, intravenous, POSTPROCEDURE | | PM PDT | | | | | PRN, Starting Wed11/20/11 at | | | | | | | 1459, Until Wed11/20/11 at 2328, | | | | | | | moderate pain | | | | | | + +---------+ +--------+--------+------+ +---------+ +--------+--------+---+ | New Bag | 11/20/19 | 25 mcg | mL/hr | | | | 12 3:10 | | | | | | PM PDT | | | | +---------+ +--------+--------+---+ | New Bag | 11/20/19 | 25 mcg | mL/hr | | | | 12 3:00 | | | | | | PM PDT | | | | +---------+ +--------+--------+---+ + +---+ | | | + +---+ | fentaNYL citrate (PF) (aka | | | SUBLIMAZE) injection 1 dose, | | | Starting Wed11/20/11 at 1501, | | | Until Wed11/20/11 at 1500 | | + +---+ | | | + +---+ + +---------+ +-------+--------+---+ | ketorolac (aka TORADOL) | New Bag | 11/20/19 | 30 mg | mL/hr | | | injection 30 mg 30 mg, | | 12 3:11 | | | | | intravenous, ONCE, 1 dose, Fri | | PM PDT | | | | | 11/20/11 at 1545 | | | | | | + +---------+ +-------+--------+---+ +---+---+ | | | +---+---+ + +---------+ +-------+-------+---+ | lactated ringers IV 100 mL/hr, | New Bag | 11/20/19 | 100 | 100 | | | intravenous, CONTINUOUS, | | 12 3:11 | mL/hr | mL/hr | | | Starting 11/20/11 at 1245, | | PM PDT | | | | | Until Wed11/20/11 at 2328 | | | | | | + +---------+ +-------+-------+---+ +---------+ +-------+-------+---+ | New Bag | 11/20/19 | 100 | 100 | | | | 12 12:45 | mL/hr | mL/hr | | | | PM PDT | | | | +---------+ +-------+-------+---+ +---+---+ | | | +---+---+ documented in this encounter
--- OUTSIDE RECORDS SUMMARY | ~2019-09-06 | XMS | Encounter Summary ---
Demographics + + + | Address | [address] | | | [place] [address] | + + + | Home Phone [...] + + | Author | [facility] | + + + | Organization | [facility] [employer] [facility] | + + + | Address | Unknown | + + + | Phone | Unavailable | + + + Support + + + + + | Name | Relationship | Address | Phone | + + + + + | Andrea Brianabettina | ECON | [address] | | | | | [place] [address] | | + + + + + | Art Shieldsyesy | ECON | Unknown | | + + + + + Care Team Providers + +------+ + | Care Tomb Maker Helper Name | Role | Phone | + [...] | 2011 | Visit | [facility] | MD Jerry [address] [facility] | induced | | | | [address] | [facility] | without mention of | | | | [address] | [place], [place] | complication | | | | Pavilion, 7th floor | [address] | (Primary Dx) | | | | [place], [place] | [phone] | | | | | [address] | | | | | | [phone] | | | +--------+---------+ + + + [...] Hearing aids o Contact lenses o Nail portuguese from at least one finger nail o [...] call us: During regular business hours, call [phone] to speak to the Family Planning Coordinato r. After hours or weekends, call [phone] ([facility] machine operator packaging) and ask to speak to the physicia n manager credit collections for General Obstetrics and Gynecology. AFTERCARE INSTRUCTIONS [...] regular periods it can be heavier or gm mobile, longer or s horter than normal. This [...] s Health. Please call Yady Rodriguez RN, ADJUNCT PROFESSOR OF ENGLISH at to schedule an appointment. Call us if [...] the procedure. During regular business hours, call [phone] to speak to the Family Planning Coordinato r. After hours or weekends, call [phone] ([facility] machine operator packaging) and ask to speak to the physicia n manager credit collections for General Obstetrics and GynecologyElectronically signed by [...] Gestational by ultr asound on 08/18/11 at [facility] was around 16 weeks. Ultrasound repeated today [...] situation now. She has tra velled to [place] from [place] with a friend and her 3 yo daughter and the friend is with the daughter now. Feels she cannot support another child right now. Is unemployed. Has p regnancy symptoms and had some light spotting a month or so ago, but no vaginal bleeding and no significant nausea/vomiting. Otherwise healthy. Had been referred from [facility] due to ane kimo though. Had no [...] i s planned for 11/20/11 in the [facility]. Anemia likely secondary to and poor nutrition. [...] this 40 minute visit was spent in fgqz-le-nvos and the decision for surgery was made today. I spent 30 minutes itzq-wz-gfwf with the patient exclusive of the procedure. MARLYS ESPINAL MD [facility] [address] [place] [address] documented in this encounter Plan of Treatment [...] | + +--------+ + + + | AK INSERT CERVICAL | Routin | 11/19/2011 | [...] | REGIONAL | | culture assay. 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
--- OUTSIDE RECORDS SUMMARY | ~2019-09-06 | XMS | Encounter Summary ---
Demographics + + + | Address | [address] | | | [place] [address] | + + + | Home Phone | | + + + | Preferred Language | Unknown | + + + | Marital Status | Single | + + + | Mandaen Affiliation | NON | + + + | Race | or | + + + | Ethnic Group | Not or | + + + Author + + + | Author | [facility] | + + + | Organization | [facility] [employer] [facility] | + + + | Address | Unknown | + + + | Phone | Unavailable | + + + Support + + + + + | Name | Relationship | Address | Phone | + + + + + | Andrea Brianafabiánelbree | ECON | [address] | | | | | [place] [address] | | + + + + + | Art Gauthier | ECON | Unknown | | + + + + + Care Team Providers + +------+ + | Care Health Nurse Name | Role | Phone | + [...] | | 2011 | anned | [phone] | | | | | | [address] | | | | | | Mailcode: [id number] | | | | | | [facility] | | | | | | [place], [place] | | | | | | [address] | | | | | | [phone] | | | +--------+ + + + [...]
--- OUTSIDE RECORDS SUMMARY | ~2019-09-06 | XMS | Encounter Summary ---
Demographics + + + | Address | [address] | | | [place] [address] | + + + | Home Phone | | + + + | Preferred Language | Unknown | + + + | Marital Status | Single | + + + | Nondenominational Affiliation | NON | + + + | Race | or | + + + | Ethnic Group | Not or | + + + Author + + + | Author | [facility] | + + + | Organization | [facility] [employer] [facility] | + + + | Address | Unknown | + + + | Phone | Unavailable | + + + Support + + + + + | Name | Relationship | Address | Phone | + + + + + | Andrea Warrenfabiánelbree | ECON | [address] | | | | | [place] [address] | | + + + + + | Art Gauthier | ECON | Unknown | | + + + + + Care Team Providers + +------+ + | Care Fleecer Name | Role | Phone | + [...] +--------+--------+ + + + + Encounter Details +--------+---------+ + + + | Date | Type | Department | Care Team | Description | +--------+---------+ + + + | 11/19/ | Surgery | [address] | Salud Feldman | DILATION AND | | 2011 | | ALBINO Aguayo MD,MPH [address] | EVACUATION | | | | [place] | [address] | | | | | Ambulatory Surgery | [place], [place] | | | | | Admitting Desk | [address] | | | | | Located on the 4th | [phone] | | | | | floor, Room [facility] | | | | | | [place], [place] | | | | | | [address] | | | +--------+---------+ + + + [...] regular periods it can be heavier or accounting consultant, longer or s horter than normal. This [...] and post- counseling is available at the [place] for [facility]. You may call Yady Rodriguez RN, COMPUTER ANALYST SUPERVISOR at [phone] to schedule an appointment. Additionally, these free, confidential resources are available to you for support: 1. Backline [phone], [email or web address] 2. Exhale [phone], [email or web address] Call us if you experience any [...] the procedure. During regular business hours, call [phone] to speak to the Family Planning Coordinato r. After hours or weekends, call [phone] ([facility] receptionist telephone operator) and ask to speak to the physicia n director of special education for General Obstetrics and Gynecology. Remember You [...] Levi/Student | | | | | | FellowS. Pr[employer] | | | | | | Micki | | | | | | M.D./PathologistT: | | | | | | 2:aimee [...] number | | | | | | [phone]. Received are | | | | | [...] | | | | | | weeks. Industrial Accountant | | | | | | sections [...] Sweet | | | | | | MVirgenPathologistElectroni | | | | | | emmanuel [...] + + + + + | 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) Complete | | legally induced without mention of complication | + + documented in this encounter Administered Medications + +---------+ +--------+--------+------+ | Medication Order | MAR | Action | Dose | Rate | Site | | | Action | Date | | | | + +---------+ +--------+--------+------+ | fentaNYL citrate (PF) (aka | New Bag | 09/28/20 | 25 mcg | mL/hr | | [...] +---------+ +-------+-------+---+ +---+---+ | | | +---+---+ + +-------+ +--------+---+ + | methylergonovine (aka | Given | 11/20/19 | 0.2 mg | | Other | | METHERGINE) injection | | 12 2:31 | | | (See | | INTRAPROCEDURE PRN, Starting Fri | | PM PDT | | | Comments | | 11/20/11 at 1431, Until Fri | | | | | ) | | 11/20/11 at 1452 | | | | | | + +-------+ +--------+---+ + +---+---+ | | | +---+---+ documented in this encounter
--- OUTSIDE RECORDS SUMMARY | ~2019-09-06 | XMS | Encounter Summary ---
Demographics + + + | Address | [address] | | | [place] [address] | + + + | Home Phone | | + + + | Preferred Language | Unknown | + + + | Marital Status | Single | + + + | Samaritan Affiliation | NON | + + + | Race | or | + + + | Ethnic Group | Not or | + + + Author + + + | Author | [facility] | + + + | Organization | [facility] [employer] [facility] | + + + | Address | Unknown | + + + | Phone | Unavailable | + + + Support + + + + + | Name | Relationship | Address | Phone | + + + + + | Andrea Warrenfabiánelbree | ECON | [address] | | | | | [place] [address] | | + + + + + | Art Gauthier | ECON | Unknown | | + + + + + Care Team Providers + +------+ + | Care Nutritional Services Director Name | Role | Phone | + [...] + + | 11/19/ | Hospital | [address] [address] | [address]ud [facility] | | | 2011 | Encounter | [address] | MD Dede,[address] | | | | | [place]/[address] | [address] | | | | | [place] | [place], [place] | | | | | (MNP/[facility]) | [address] | | | | | [place], [place] | [phone] | | | | | [address] | | | | | | [phone] | | | +--------+ + + + [...] regular periods it can be heavier or senior training and development rep, longer or s horter than normal. This [...] and post- counseling is available at the [place] for [facility]. You may call Yady Rodriguez RN, CANAL BOAT OPERATOR at [phone] to schedule an appointment. Additionally, these free, confidential resources are available to you for support: 1. Backline [phone], www.[email or web address] 2. Exhale [phone], [email or web address] Call us if you experience any [...] the procedure. During regular business hours, call [phone] to speak to the Family Planning Coordinato r. After hours or weekends, call [phone] ([place] currency machine operator) and ask to speak to the physicia n gis application developer for General Obstetrics and Gynecology. Remember You [...] number | | | | | | [phone]. Received are | | | | | [...] | | | | | | weeks. Substitute Crossing Guard | | | | | | sections [...] | + + + + + | [facility] | [address] | [place] [address] | | | PATHOLOGY | [address] [...]
--- OUTSIDE RECORDS SUMMARY | ~2019-09-06 | XMS | Encounter Summary ---
Demographics + + + | Address | [address] | | | [place] [address] | + + + | Home Phone | | + + + | Preferred Language | Unknown | + + + | Marital Status | Single | + + + | Moravian Affiliation | NON | + + + | Race | or | + + + | Ethnic Group | Not or | + + + Author + + + | Author | [facility] | + + + | Organization | [facility] | + + + | Address | Unknown | + + + | Phone | Unavailable | + + + Support + + + + + | Name | Relationship | Address | Phone | + + + + + | Andrea Brianafabiánelbree | ECON | [address] | | | | | [place] [address] | | + + + + + | Art Gauthier | ECON | Unknown | | + + + + + Care Team Providers + +------+ + | Care Ethylbenzene Converter Helper Name | Role | Phone | + +------+ + | No Pcp Per Patient | PCP | Unavailable | + +------+ + Reason for Visit + + + | Reason | Comments | + + + | Pre-operative | | | evaluation | | + + + Encounter Details +--------+ + + + + | Date | Type | Department | Care Team | Description | +--------+ + + + + | 11/18/ | Telephone-S | Preoperative | | Pre-operative | | 2011 | cheduled | Medicine Clinic at | | evaluation | | | | [facility] 4th Floor Day | | | | | | Stay [address] | | | | | | [address] | | | | | | Mailcode: [facility] | | | | | | [facility] | | | | | | [address] [place], [place] | | | | | | [address] | | | | | | [phone] | | | +--------+ + + + + Anesthesia Record + + + + + | Procedure Name | Responsible | Anesthesia Start | Anesthesia Stop Time | | | Anesthesiologist | Time | | + + + + + | DILATION AND | Mouna Crocker MD | 11/20/11 1359 | 11/20/11 1459 | | EVACUATION (N/A | | | [...] + + | | 1 | an mouna now | | | | 4 | [...] | Meds | +------+ + + + No medications | on file. | + + + + + | No agents on file. | + + + + | No blood administrations on file. | + + +--------+ + + + | Type | Details | Placement | Removal | +--------+ + + + | RETIRE | 11/20/11; 1245; 11/20/11; 1712; | 11/20/11 1245 by | 11/20/11 1712 by | | D - | No; 20; Right; Antecubital; | Lucille Landers | Aylin Cheek RN | | Periph | Lidocaine; No; Positive; Therapy | CLAUDIA Zheng | | | eraiva | completed | | | | Line [...] + + documented as of this encounter Patient Instructions Patient Instructions Mary Benavidez Np - 11/19/2011 2:16 PM PDT PREOPERATIVE INSTRUCTIONS Do not eat or drink anything after midnight the night before surgery. TAKE the following medications with a sip of water on the morning of surgery: DOXYCYCLINE HYCLATE 100 MG TABLET Take 1 Tab by mouth every twelve hours. Start by taking 2 tabs tonight. TAKE the following medications with a sip of water on the morning of surgery PRN as directe d: HYDROCODONE-ACETAMINOPHEN 5 MG-500 MG TABLET Take 1-2 Tabs by mouth every four hours as nee ded for moderate pain. Not to exceed 6 tablets per any 24 hour period. (Not to exceed 3250 m g of acetaminophen from all products per 24 hour period.) Do NOT take the following medications on the morning of surgery: IBUPROFEN 600 MG TABLET Take 1 Tab by mouth every six hours as needed. Do not take any Aspirin, vitamin E or non-steroidal anti-inflammatory (NSAIDs i.e. Advil , Aleve, Ibuprofen) or herbal supplements seven days prior to your surgery. These drugs may interfere with normal blood clotting and may cause excessive bleeding and bruising during or after the surgery. If you need a pain medication for general purposes, use Tylenol as directed. If you are in doubt about any medications that you are taking, please contact our office . Important Guidelines Do not smoke, drink alcohol or use recreational drugs for 24 hours before your surgery Do not eat any hard candy or chew gum after midnight the night before your surgery. Watch for any change in your health condition. Let your surgeon know right away if you do not feel well. Do not wear makeup, perfume, lotions or powder. Remove any nail latvian from at least one fingernail. Do not wear any jewelry to the hospital. Wear loose, comfortable clothing. Bring the case and solution for your contact lenses or wear your glasses. Leave all your valuables at home. Allow enough travel time so you re not late for your check in for surgery. Take a bath or shower and remember to shampoo your hair using your usual hair product be fore your arrival at the hospital. Please remember to brush your teeth the night before and the morning of your procedure. Surgery Check in Locations Day Stay Unit [facility], fourth floor Room 4512 Surgery Check in Time: Someone from your surgeon's office or [facility] hospital will provide you with information regarding your check in time. If you have any questions about this, pl ease contact your surgeon's office. Going Home Your surgical team will decide when you are medically ready to go home. If you are released to go home on the same day as your procedure/surgery please note the following: You will not be able to drive. You will be required to have a competent adult drive you or accompany you by taxi or pub lic transportation on the day of discharge. It is also required that you have a competent adult assist you and look after you on the first night after you have undergone regional blocks (72 hours for patients going home with regional block pump), deep sedation, and/or general anesthesia. If you stayed in the hospital after surgery, please arrange for your ride to come for yo u around 9AM on the day your doctor says you can go home. Check out time is 11AM. If you have questions or concerns after you go home, call your doctor s office. If it is after office hours, call the [facility] certifed refrigeration operator at [phone] and ask them to page your doc tor. documented in this encounter Plan of Treatment Not on filedocumented as of this encounter Visit Diagnoses Not on filedocumented in this encounter"
--- OUTSIDE RECORDS SUMMARY | ~2019-09-06 | XMS | Encounter Summary ---
Demographics + + + | Address | [address] | | | [place] [address] | + + + | Home Phone | | + + + | Preferred Language | Unknown | + + + | Marital Status | Single | + + + | Restorationist Affiliation | NON | + + + | Race | or | + + + | Ethnic Group | Not or | + + + Author + + + | Author | [facility] | + + + | Organization | [facility] | + + + | Address | Unknown | + + + | Phone | Unavailable | + + + Support + + + + + | Name | Relationship | Address | Phone | + + + + + | Andrea Brianafabiánelbree | ECON | [address] | | | | | [place] [address] | | + + + + + | Art Gauthier | ECON | Unknown | | + + + + + Care Team Providers + +------+ + | Care Sheet Metal Roofer Name | Role | Phone | + [...] [id number] | | | | | | [facility] | | | | | | [address] [place], [place] | | | | | | [address] | | | | | | [phone] | | | +--------+ + + + [...] perfume, lotions or powder. Remove any nail divehi from at least one fingernail. Do not [...] Surgery Check in Locations Day Stay Unit [facility], fourth floor Room 4516 Surgery Check in Time: Someone from your [...] it is after office hours, call the [facility] paint line operator at [phone] and ask them to page your doc tor. documented in this encounter Plan of Treatment Not on filedocumented as of this encounter Visit Diagnoses Not on filedocumented in this encounter"
--- OUTSIDE RECORDS SUMMARY | ~2019-09-06 | XMS | Encounter Summary ---
Demographics + + + | Address | [address] | | | [place] [address] | + + + | Home Phone | | + + + | Preferred Language | Unknown | + + + | Marital Status | Single | + + + | Jain Affiliation | NON | + + + | Race | or | + + + | Ethnic Group | Not or | + + + Author + + + | Author | [facility] | + + + | Organization | [facility] [address] [facility] | + + + | Address | Unknown | + + + | Phone | Unavailable | + + + Support + + + + + | Name | Relationship | Address | Phone | + + + + + | Andrea Brianafabiánelbree | ECON | [address] | | | | | [place] [address] | | + + + + + | Art Gauthier | ECON | Unknown | | + + + + + Care Team Providers + +------+ + | Care Urology Physician Name | Role | Phone | + [...] floor | | | | | | [place], [place] | | | | | | [address] | | | | | | [phone] | | | +--------+------+ + + + [...] DEPARTMENT OF | [address] | [place] [address] | | | PATHOLOGY | [address] [...] | + + + + + | [facility] | [address] | [place] [address] | | | PATHOLOGY | [address] | | | + + + + + documented in this encounter Visit Diagnoses + + | Diagnosis | + + | test positive examination or test, positive result | + + documented in this encounter"
--- OUTSIDE RECORDS SUMMARY | ~2019-09-06 | XMS | Encounter Summary ---
Demographics + + + | Address | [address] | | | [place] [address] | + + + | Home Phone [...] | Author | [facility] | + + + | Organization | [facility] [employer] [facility] | + + + | Address | Unknown | + + + | Phone | Unavailable | + + + Support + + + + + | Name | Relationship | Address | Phone | + + + + + | Andrea Warrenfabiánelbree | ECON | [address] | | | | | [place] [address] | | + + + + + | Art Gauthier | ECON | Unknown | | + + + + + Care Team Providers + +------+ + | Care Travel Registered Nurse Oncology Name | Role | Phone | + [...] | 2011 | | ALBINO Aguayo MD,MPH [address] | EVACUATION | | | | [facility] | [facility] | | | | | Ambulatory Surgery | [place], [place] | | | | | Admitting Desk | [address] | | | | | Located on the 4th | [phone] | | | | | floor, Room [facility] | | | | | | [place], [place] | | | | | | [address] | | | +--------+---------+ + + + [...] regular periods it can be heavier or inpatient coder, longer or s horter than normal. This [...] and post- counseling is available at the [place] [facility]. You may call Yady Rodriguez RN, GAS ENGINE MECHANIC at [phone] to schedule an appointment. Additionally, these free, confidential resources are available to you for support: 1. Backline [phone], [email or web address] 2. Exhale [phone], [email or web address].org Call us if you experience any [...] the procedure. During regular business hours, call [phone] to speak to the Family Planning Coordinato r. After hours or weekends, call [phone] ([facility] mingle operator) and ask to speak to the physicia n immigration services officer for General Obstetrics and Gynecology. Remember You [...] number | | | | | | [phone]. Received are | | | | | [...] | | | | | | weeks. Fire Extinguisher Mechanic | | | | | | sections [...] + + + + + | [facility] | [address] | [place] [address] | | | PATHOLOGY | [address] [...]
[~2019-09-06 20:10] MED LIST changes: +PROTONIX40 MG PO
[2019-09-07] MEDS ORDERED: ZOFRAN4 MG PO (00:47)
== END 2019-09-07 01:00 | disposition home or self-care (01) ==
LOC: ED 20:10
DX: R10.13 Epigastric pain (principal)
CPT/HCPCS: 76705; 80053; 81001; 83690; 84703; 85025; 96361; 96374; 99284-25; J2405; J7030

== ENCOUNTER 2019-10-21 18:00 | Emergency (ER) | payer OTHER ==
[~2019-10-21] VITALS: Ht 165.1 cm; Wt 81.7 kg
[~2019-10-21 18:00] MED LIST changes: +ZOFRAN4 MG PO
== END 2019-10-21 20:51 | disposition home or self-care (01) ==
LOC: ED 18:00
DX: S83.92XA Sprain of unspecified site of left knee, initial encounter (principal); F17.200 Nicotine dependence, unspecified, uncomplicated; X50.1XXA Overexertion from prolonged static or awkward postures, initial encounter
CPT/HCPCS: 73560; 99283-25

== ENCOUNTER 2020-05-26 14:56 | Inpatient (IN) | payer OTHER ==
[~2020-05-26] VITALS: Ht 165.1 cm; Wt 77.6 kg
[2020-05-26] MEDS ORDERED: ONDANSETRON ODT8 MG PO (15:09)
--- NOTE | 2020-05-26 20:45 | NUR ---
pt ARRIVED TO THE FLOOR VIA ED STRETCHER AT THIS TIEM, SELF AMBULATED TO HOSPITAL BED. A/OX4, APPEARS COMFORTABLE AT THIS TIME. VSS, BOYFRIEND ALSO IN ROOM. pt ORIENTED TO ROOM, CALL LIGHT IN REACH.
--- NOTE | 2020-05-26 21:45 | NUR ---
IN ROOM TO HANG FLUIDS, ADMINISTER MEDS. PT ASKS QUESTIONS ABOUT PROCEDURE TMRW. REPORTS NO NAUSEA AT THIS TIME. EDUCATED BUSINESS CONTINUITY ANALYST LIGHT USE AND CALLING FOR ASSISTANCE FOR TOILET USE. PT VERBALIZES AGREEMENT. NO FURTHER NEEDS AT THIS TIME.
--- NOTE | 2020-05-27 00:45 | NUR ---
pt MADE NPO AT THIS TIME FOR PLANNED UPPER SCOPE. pt VERBALIZED UNDERSTANDING, NO FURTHER NEEDS. CALL LIGHT IN REACH.
--- NOTE | 2020-05-27 00:54 | NUR ---
CHECKED ON PT. PT APPEARS TO BE SLEEPING; EYES CLOSED, EVEN BREATHING NOTED. PT'S BOYFRIEND IN ROOM WELL. CALL LIGHT WITHIN REACH.
--- NOTE | 2020-05-27 04:34 | NUR ---
CALL LIGHT ANSWERED. PT UP TO TOILET TO VOID, C/O ABDOMINAL PAIN 7/10 AND NAUSEA WITH DRY HEAVING WHICH IS VISUALIZED BY THIS NURSE. 8MG IV ZOFRAN ADMINISTERED AT THIS TIME. FOR PAIN 0.5MG DILAUDID IV ADMINISTERED. WILL CONTINUE TO MONITOR.
--- NOTE | 2020-05-27 05:41 | NUR ---
IN ROOM FOR MORNING VITALS AND ASSESSMENT. PT REPORTS PAIN IN ABDOMEN IS IMPROVED TO 5/10. VSS. BOWEL TONES ACTIVE. NAUSEA IMPROVED FOLLOWING ZOFRAN. PT HAS BEEN NPO SINCE MIDNIGHT IN PREPARATION FOR TODAY'S ENDOSCOPY. NO FURTHER NEEDS AT THIS TIME. CALL LIGHT WITHIN REACH.
--- NOTE | 2020-05-27 07:48 | CONS ---
[facility] [address] [place], [place] [address] Signed DATE OF CONSULTATION: 05/26/2020 CHIEF COMPLAINT: Epigastric abdominal pain. HISTORY OF PRESENT ILLNESS: Milla is a 29-year-old female who is a tsng-am-fdyr mom with three children. Apparently, she has been drinking alcohol for many years. For some reason in the last month, it has gotten worse. She has been having epigastric and subxiphoid abdominal pain with nausea, vomiting, and dehydration. She told me she normally comes to the emergency room, gets a couple L of fluid. She is better and goes home. But on this occasion, she has not been able to eat or drink much at all this last month. She had gone to the [facility]. She had a bunch of blood work drawn, but she has not heard anything back yet. No x-rays or ultrasounds were done. She told me she was given medication, but she really has not taken it much. She decided because of her ongoing symptoms to come to the emergency room for evaluation. Here in the emergency room, she was given 2 L of IV fluids to make any urine. She points to the subxiphoid areas of pain and tells me when she lies flat, by the time she wakes up in the morning, it feels like the pain is all the way up to the sternal notch. She quit drinking for a month, hoping that would make a difference but apparently not so. I was asked to see her as a general surgeon promotional model to come to the emergency room. PAST MEDICAL HISTORY: Daily alcohol use. PAST SURGICAL HISTORY: D and C for a lost . MEDICATIONS: medication for which she is not taking. ALLERGIES: None. SOCIAL HISTORY: She does not smoke, but she apparently has drank daily for many years, but quit about a month ago. She is single and has 3 children, all born vaginally. She has her boyfriend with her saleem. She attends the [employer]. She prefers the [facility]. Her mother is Yovani at [phone]. She drives but stays at home. PHYSICAL EXAMINATION: VITAL SIGNS: Her blood pressure is 105/70, heart rate 65, respiratory rate 17, temperature is 99.2, she is 97% on room air. She is 5 feet 5 inches and 78 kg. Electronically Signed By: ANDERSON FIELDS MD 05/27/20 0748 PATIENT NAME: MILLA LEI SONYA CONSULTATION DATE OF : 89 REPORT #: [id number] PHYSICIAN: ANDERSON FIELDS MD PCP: [facility] REPORT IS CONFIDENTIAL AND NOT TO BE RELEASED WITHOUT AUTHORIZATION [address] [address] Signed GENERAL: Milla is a 29-year-old female, lying supine semi-recumbent in her ER bed watching TV. Her boyfriend is at the bedside. She does not appear particularly dehydrated currently and nor does she appear systemically ill or toxic. She is not jaundiced. She makes good eye contact and overall is a pretty good historian. She tells me she does not withdrawal when she stops alcohol. LUNGS: Clear to auscultation. HEART: Regular rate and rhythm without murmur. ABDOMEN: Soft, flat and nontender. She points to the subxiphoid area as the area of pain. LABORATORY DATA: Her white blood count is 6.4, hemoglobin 13, platelets 252. Potassium is slightly low at 3.1. Her BUN is 4, creatinine 0.57, glucose 106. Beta HCG negative. COVID is pending. Her urinalysis was negative. AST is elevated at 219, ALT elevated at 141, total bilirubin normal at 1.1, albumin is 4.0, lipase 5. RADIOGRAPHIC STUDIES: Her chest and abdominal x-ray were done and these were unremarkable. ASSESSMENT AND PLAN: Milla is a 29-year-old female who generally appears healthy and at her stated age. She certainly has epigastric abdominal pain with nausea, vomiting, and dehydration. We are still awaiting for COVID test. It is already late on Wednesday. She is not truly an emergent case. We are going to go ahead and admit her overnight for IV fluids and repeat the labs in the morning and add her on to the schedule tomorrow, probably sometime around noon or thereafter for upper endoscopy. If for some reason that will be negative, we would have to look more at the liver and her gallbladder. However, this currently appears to all be related to alcohol intake. I have reviewed this with Milla and her boyfriend. They have expressed understanding and agreed with the above plan. Anderson Fields MD ALB/MODL /[id number] cc: Carina Perez Electronically Signed By: ANDERSON FIELDS MD 05/27/20 0748 PATIENT NAME: MILLA LEI CONSULTATION DATE OF : 89 REPORT #: [id number] PHYSICIAN: ANDERSON FIELDS MD PCP: [facility] REPORT IS CONFIDENTIAL AND NOT TO BE RELEASED WITHOUT AUTHORIZATION [address] [address] Signed Anderson Fields MD Copies: ANDERSON FIELDS MD ~ Electronically Signed By: ANDERSON FIELDS MD 05/27/20 0748 PATIENT NAME: MILLA LEI CONSULTATION DATE OF : 89 REPORT #: [id number] PHYSICIAN: ANDERSON FIELDS MD PCP: [facility] REPORT IS CONFIDENTIAL AND NOT TO BE RELEASED WITHOUT AUTHORIZATION
--- NOTE | 2020-05-27 08:51 | NUR ---
Phenergan 12.5mg IVP admin via pump with 20ml ns dilute for reports of nausea.
--- NOTE | 2020-05-27 10:08 | NUR ---
Dilaudid 0.5mg IVP admin for reports of 7/10 abd pain.
--- NOTE | 2020-05-27 11:35 | NUR ---
Patient left unit for EGD with LAST DIPPER.
--- NOTE | 2020-05-27 12:35 | NUR ---
05/27/20 1235 Whitney Butts 1200 PT ARRIVED IN PACU WIDE AWAKE WITH NO C/O'S. 1210 GLASSES RETURNED TO PT. 1220 RESTING. NO C/O'S. 1230 TO ROOM 123. REPORT GIVEN TO RN. BLACK AT BEDSIDE.
--- NOTE | 2020-05-27 12:40 | NUR ---
Patient back to medical floor from EGD. Patient awake, alert and oriented x3. Patient denies pain at this time. HOB elevated, airway patent, respirations even and non labored. Left AC iv patent. Vital signs are stable, afebrile. Pt to continue with NPO satus as she will have an US today. Patient educated on NPO status. Boyfriend at bedside visiting. Call light within reach. Patient due to void.
--- NOTE | 2020-05-27 14:00 | NUR ---
PATIENT APPEARS SLEEPING AFTER PROCEDURE. STAFF NURSE STATES PATIENT IS NORMALLY INDEPENDENT AND PLANS ON DISCHARGING HOME. WILL CHECK IN LATER.
--- NOTE | 2020-05-27 14:33 | NUR ---
Patient a&ox4. Patient reports doing well, abd pain tolerable at this time. Vital signs are stable. Patient due to void. ABD ultrasound completed. Call light within reach. No needs.
--- NOTE | 2020-05-27 14:37 | NUR ---
PT BACK FROM EGD, IMAGING STAFF IN WITH PT NOW. WILL FOLLOW
--- NOTE | 2020-05-27 15:28 | NUR ---
Patient resting, respirations even and non labored. Vital signs are stable, afebrile. IV fluids infusing. Patient has no distress noted, flacc 0/10. Personal supplies and call light within reach.
--- NOTE | 2020-05-27 17:30 | NUR ---
Ultram 50mg po admin for reports of 5/10 head/neck pain.
--- NOTE | 2020-05-27 18:22 | NUR ---
PATIENT IN BED, VISITOR IN ROOM. FRESH WATER GIVEN. PATIENT SHOWERED IND. EARLIER. CALL LIGHT IN REACH. NO FURTHER NEEDS AT THIST LATISHA.
--- NOTE | 2020-05-27 19:35 | NUR ---
SHIFT REPORT FROM NURSE WALKER. PT AWAKE IN BED WITH PT'S BOYFRIEND AT BEDSIDE. PT REPORTS SOME ABDOMINAL PAIN ALTHOUGH WOULD LIKE TO "HOLD OUT" FOR PAIN MEDS BECAUSE THEY MAKE HER DROWSY. PT ATTEMPTING TO DRINK SMALL AMOUNTS OF WATER. CALL LIGHT WITHIN REACH.
--- NOTE | 2020-05-27 20:56 | NUR ---
VITALS CCOMPLETED. PT UP TO BATHROOM, SBA
--- NOTE | 2020-05-27 21:19 | NUR ---
IN ROOM FOR EVENING MEDS AND ASSESSMENT. PT C/O 08/31 PAIN IN UPPER ABDOMEN. 0.5MG IV DILAUDID ADMINISTERED. BOWEL TONES ACTIVE. LUNG SOUND DIM AND FINE CRACKLES IN BASES. I.S. ENCOURAGED. CPOX SET UP FOR THE NIGHT. SCDS ON. PT REPORTS SOME NAUSEA. PHENERGAN ADMINISTERED ZOFRAN WAS DONE PRIOR TO SHIFT CHANGE. RT SALLY IN ROOM WELL. PT REQUESTS MENSTRAL PADS WHICH ARE PLACED IN THE BATHROOM. PT ENCOURAGED TO USE CALL LIGHT TO USE RESTROOM. CALL LIGHT WITHIN [facility].
--- NOTE | 2020-05-27 23:13 | NUR ---
checked on pt. pt sleeping; cpox spo2 at 95% RA, hr 55. no apparent signs of distress. pt's boyfriend sleeping on sofa. call light within reach
--- NOTE | 2020-05-28 00:20 | NUR ---
CALL LIGHT ANSWERED. IV PUMP ALARMING; NEW BAG OF FLUIDS HUNG. PT THEN REQUESTS TO GO TO TOILET TO VOID.SBA TO TOILET; PT REPORTS NAUSEA AFTER MOVING AND WOULD LIKE PRN NAUSEA MEDICATION. 8MG ZOFRAN ADMINISTERED AT THIS TIME. CPOX BACK ON, IVF INFUSING PER ORDER; EXCELLENT URINE OUTPUT. PT REFUSES SCDS AT THIS TIME. CALL LIGHT WITHIN REACH.
--- NOTE | 2020-05-28 05:18 | NUR ---
IN ROOM FOR MORNING VITALS AND ASSESSMENT. CPOX 98 %RA, HR61. PT UP TO TOILET TO VOID. REPORTS INCREASED NAUSEA. 12.5MG PHENERGAN GIVEN OVER PIGGYBACK ON PUMP ZOFRAN IS NOT YET DUE. PT RETURNED TO BED, CALL LIGHT WITHIN REACH. PT'S BOYFRIEND IN RECLINER. NO FURTHER NEEDS AT THIS TIME.
--- NOTE | 2020-05-28 07:29 | NUR ---
Patient resting in bed, respirations even and non labored. No notable distress. Personal supplies and call light within reach.
--- NOTE | 2020-05-28 07:34 | OR ---
[facility] [address] [place], [place] [address] Signed DATE OF OPERATION: 05/27/2020 SURGEON: Anderson Fields MD PREOPERATIVE DIAGNOSES: 1. Epigastric pain with nausea and vomiting. 2. Dehydration. 3. Anemia. 4. Chronic alcohol use. POSTOPERATIVE DIAGNOSIS: Ezol-xy-ksbwjnbr diffuse gastritis. PROCEDURES: EGD with CLOtest and biopsies of the duodenal pyloric bulb antrum and body of the stomach. ESTIMATED BLOOD LOSS: None. INDICATIONS: Milla is a 29-year-old female, who apparently has been drinking alcohol on a daily basis for a number of years. She said the last month it seems to be getting worse. She is having epigastric abdominal pain, nausea and vomiting and heartburn. She said it has been for years, but it has gotten worse. She had normally she can go to the emergency room, get a couple of liters of IV fluids and usually she feels better and goes home. On this occasion, she continues to be nauseated and vomits. I had seen her in the emergency room last night. Her AST and ALT were elevated with the total bilirubin and lipase were fine. Beta-hCG was negative. She was hydrated overnight and we could see she is a little bit anemic this morning. Abdominal x-ray was unremarkable. We are correcting her hypokalemia and hypomagnesemia as well. She feels like her symptoms are still about the same. We had reviewed the idea of upper endoscopy. She had been to her primary care provider and had lab work done and been given some medication for the stomach, but never took it. I had reviewed with her the upper endoscopy along with its risks including, but not limited to gas bloating, crampy abdominal pain, bleeding, perforation requiring surgery, and missed diagnosis. We also discussed the need for IV conscious sedation. Given her daily alcohol use, we asked that an anesthesia provider help us with increased monitoring and sedation with propofol. She had expressed understanding and wished to proceed. Electronically Signed By: ANDERSON FIELDS MD 05/28/20 0734 PATIENT NAME: MILLA LEI SONYA OPERATIVE REPORT DATE OF : [birth year] REPORT #: [id number] PHYSICIAN: ANDERSON FIELDS MD PCP: [facility] REPORT IS CONFIDENTIAL AND NOT TO BE RELEASED WITHOUT AUTHORIZATION [facility] [address] [place] [id number] Signed DESCRIPTION OF PROCEDURE: Milla was taken into the endoscopy suite and placed in the supine semi-recumbent position. She was given IV sedation by our nurse siding stapler. A bite block was utilized for the case. The adult gastroscope was introduced and advanced out into the third portion of the duodenum under direct visualization of camera without difficulty. The duodenum and pyloric channel were particularly concerning. We went ahead and took biopsies because of her abdominal pain. The stomach showed eiaz-ij-esbglbyc diffuse erythematous changes consistent with her daily alcohol use. We took biopsies from the antrum and body of the stomach for pathologic review. We took a biopsy of the antrum for CLOtest. Upon retroflexion of scope, I really cannot appreciate an obvious hiatal hernia. The scope was withdrawn up to the area of GE junction, which is compliant without stricture. There was no gastric or esophageal varices. The Z-line remains intact. There was no Rudolph mucosa, no distal esophagitis. The middle and upper esophagus were unremarkable. After this, the gas was suctioned out and the gastroscope removed. Milla tolerated the procedure quite well. RECOMMENDATIONS: Milla will be returned to her room and kept n.p.o. for now. We are going to check an ultrasound of her gallbladder and proceed from there. In the meantime, she will stay on IV Protonix b.i.d. Anderson Fields MD ALB/MODL /[id number] cc: [facility] Anderson Fields MD Copies: [facility] ANDERSON FIELDS MD ~ Electronically Signed By: ANDERSON FIELDS MD 05/28/20 0734 PATIENT NAME: MILLA LEI SONYA OPERATIVE REPORT DATE OF : [birth year] REPORT #: [id number] PHYSICIAN: ANDERSON FIELDS MD PCP: [facility] REPORT IS CONFIDENTIAL AND NOT TO BE RELEASED WITHOUT AUTHORIZATION
--- NOTE | 2020-05-28 09:01 | NUR ---
Patient left unit for a hida scan. kcl to be started when back back to the floor.
--- NOTE | 2020-05-28 09:31 | NUR ---
Patient still off floor for hida scan.
--- NOTE | 2020-05-28 10:18 | NUR ---
Stopped to see pt, she is having a scan. Will return later.
--- NOTE | 2020-05-28 11:06 | NUR ---
Patient back to floor from hida scan. Pt alert and oriented x4. Vital signs stable, afebrile. Zofran 8mg IVP admin for reports of nausea. Personal supplies and call light within reach. Significant other at bedside.
--- NOTE | 2020-05-28 14:00 | NUR ---
pHENERGAN 12.5MG IVP ADMIN VIA PUMP FOR REPORTS OF NAUSEA.
--- NOTE | 2020-05-28 17:10 | NUR ---
Spoke with Dr. Fields. Ok to advance diet to soft then npo at midnight. Also ok to change patient status to inpatient.
--- NOTE | 2020-05-28 19:29 | NUR ---
RECEIVED REPORT FROM DAY SHIFT RN. PATIENT IS RESTING IN BED. AARON RN IN ROOM TO START IV. NO NEEDS NOTED. CALL LIGHT IN REACH.
--- NOTE | 2020-05-28 19:40 | NUR ---
zOFRAN 8MG ADMIN IVP FOR REPORTS OF NAUSEA.
--- NOTE | 2020-05-28 21:00 | NUR ---
PATIENT ASSESMENT COMPLETED. VITALS TAKEN AND RECORDED. INTAKAE AND OUPUT RECORDED. PATIENTS EVENING MEDICATIONS GIVEN PER ORDER. PATIENT RATES PAIN AT A 5/10. PATIENT GIVEN PRN PAIN MEDICATION. PATIENT REPORTS NAUSEA. PATIENT GIVEN PRN NAUSEA MEDICATION PER ORDER. NO FURTHER NEEDS NOTED. CALL LIGHT IN REACH.
--- NOTE | 2020-05-29 02:11 | NUR ---
PATIENT IS RESTING IN BED WITH EYES CLOSED, RR 16. CALL LIGHT IN REACH. BOYFRIEND ASLEEP ON COUCH.
--- NOTE | 2020-05-29 04:09 | NUR ---
PATIENT ASSISTED TO THE RESTROOM. PATIENT WAS ABLE TO VOID. PATIENT IS BACK IN BED RESTING. PATIENT REPORT NAUSEA. PATIENT GIVEN PRN NAUSEA MEDICATION PER ORDER. PATIENT DENIES ANY PAIN. NO FURTHER NEEDS NOTED. CALL LIGHT IN REACH.
--- NOTE | 2020-05-29 05:26 | NUR ---
PATIENTS VITALS TAKEN AND RECORDED. INTAKE AND OUPUT RECORDED. PATIENT DENIES ANY PAIN OR NAUSEA. PATIENT REMAINS NPO AT THIS TIME. IV INFUSING PER ORDER. NO NEEDS NOTED. CALL LIGHT IN REACH.
--- NOTE | 2020-05-29 08:00 | NUR ---
RECEIVED REPORT [id number], PT WAS SLEEPING AT THAT TIME.
--- NOTE | 2020-05-29 09:00 | NUR ---
ABD SOUNDS ARE HYPOACTIVE, PT IS STILL PASSING SOME FLATUS. PAIN AND NAUSEA WERE AN ISSUE WITH ASSESSMENT. PRN MEDS WERE GIVEN. ABD IS SOFT TO TOUCH BUT TENDER. NO ALL LOBES ARE CLEAR. NO OTHER CONCERNS WERE NOTED.
--- NOTE | 2020-05-29 10:03 | NUR ---
IN TO COMPLETE PTS CASE MANAGEMENT ASSESSMENT. PT DENIES ANY NEEDS AT HOME.
--- NOTE | 2020-05-29 10:50 | NUR ---
MD CANALES WAS CALLED SINCE PT HAS NOT HAD ANY ABX IN PAST 48HR. ORDER FOR ANCEF 2G IV TO BE GIVEN 1HR PRIOR TO OR AND ORDER FOR FLAGYL 500MG IV WERE RECEIVED.
--- NOTE | 2020-05-29 10:52 | NUR ---
v/s and I&Os done pre op wipe down done by rn. no other needs at this time
--- NOTE | 2020-05-29 11:45 | NUR ---
PT READY FOR OR. NO NEW CONCERNS NOTED AT THIS TIME.
--- NOTE | 2020-05-29 12:13 | NUR ---
PT ON HER WAY TO OR.
--- NOTE | 2020-05-29 14:58 | NUR ---
05/29/20 1458 Whitney Butts 1421 PT ARRIVED IN PACU NON RESPONSIVE TO NOXIOUS STIMULI WITH OPA IN PLACE. 1426 PT REACTIVE. OPA REMOVED. ICE TO ABD. 1430 ROLLING AROUND IN BED C/O ABD PAIN. UNABLE TO RATE. TC TO ANESTHESIA WITH NEW ORDERS RECEIVED. 1435 FENTANYL 50MCG GIVEN IVP. 1440 O2 SATS DROPPED TO 85% ON RA. ENCOURAGED COUGH, DEEP BREATHING WITH NO INCREASE IN SATS. O2 AT 4L VIA NC PLACED WHILE CONTINUOUSLY STIMULATING PT. 1445 SATS INCREASED TO 92% ON 4L. 1450 PT C/O ABD PAIN 12/01. FENTANYL 25MCG GIVEN IVP. 1455 OXYGEN DECREASED TO 2L WITH SATS 96%. PT RESTING. REU.
--- NOTE | 2020-05-29 15:57 | NUR ---
PT ARRIVED ON FLOOR AT 1510. PT WAS IN 10/10 PAIN. LAST DOSE OF 25MCG FENTANYL WAS GIVEN [id number]. WAITED WITH DILAUDED ADMIN, DUE TO PT FALLING ASLEEP AND LOW RR OF 8 WHEN PT FELL ASLEEP. PT THEN WENT TO THE BATHROOM AND VOIDED 1000MLS. DILAUDED WAS GIVEN AFTER THAT SINCE PT WAS ALERT AND HAD 10/10 PAIN ONCE MORE. LAP SITES X3, DRESSINGS ARE C/D/I.
[2020-05-29] MEDS ORDERED: OXYCODONE HCL10 MG PO (19:42)
--- NOTE | 2020-05-29 20:06 | NUR ---
PATIENT IS RESTING IN BED WATCHING TV. PATIENT DENIES ANY PAIN OR NAUSEA. RX GIVEN TO BOYFRIEND TO TAKE TO PHARMACY. PATIENTS DC PAPER BEING COMPLETED BY RAMÍREZ TAYLOR.
--- NOTE | 2020-05-29 20:19 | NUR ---
DISCUSSED DC PAPERS WITH PATIENT. ALL QUESTIONS ANSWERED. PATIENT GIVEN SECOND TAB OF PRN PAIN MEDICATION. PATIENTS IV REMOVED. PATIENT IS GETTING DRESSED AT THIS TIME. CALL LIGHT IN REACH .
--- NOTE | 2020-05-29 20:36 | NUR ---
IN TO GET POST OPS, PT READY TO DISCHARGE
--- NOTE | 2020-05-29 21:09 | NUR ---
PATIENTS VITALS TAKEN AND RECORDED. PATIENT IS NOW OFF THE FLOOR WITH JAY DRAKE TO BE DC'D. ALL BELONGINGS WITH PATIENT.
--- NOTE | 2020-05-30 06:33 | OR ---
[facility] [address] [place], [place] [address] Signed DATE OF OPERATION: 05/29/2020 SURGEON: Anderson Fields MD PREOPERATIVE DIAGNOSIS: Acalculous chronic cholecystitis. POSTOPERATIVE DIAGNOSES: 1. Acalculous chronic cholecystitis. 2. Cholesterolosis. 3. Yellow liver. PROCEDURES: Laparoscopic cholecystectomy with intraoperative cholangiogram. ESTIMATED BLOOD LOSS: None. FINDINGS: Milla appears to have very thick dark bile and cholesterolosis. Her liver is pale, yellow throughout. No nodularity at this time. INDICATIONS: Milla is a 29-year-old female, who came to us on 05/26/2020 with epigastric abdominal pain, nausea, vomiting, and heartburn. She said she has had it for years, but it has gotten progressively worse over the last month. She had epigastric abdominal pain and some dehydration. She drinks alcohol on a daily basis and even more in the weekends. She told me she quit drinking a month ago and she still having her symptoms. She said even the smell of food made her nauseated. In the emergency room, she received 2 L of IV fluids and still felt dehydrated and still did not urinate. She seemed to have a little tenderness in the epigastric area. Labs showed elevated AST and ALT, but the bilirubin and alkaline phosphatase not particularly concerning. The lipase was unremarkable. COVID turned out negative and the beta-hCG was negative. There was concern for alcohol-related esophagitis and/or gastritis. I have been asked to admit her as a general surgeon on-call. She was hydrated overnight and barely made much urine. Finally, later that day, she started to make more urine as she caught up. We took her for upper endoscopy on 05/27/2020 and found that she was a little anemic after hydration and had mzze-fs-ldhqbsop diffuse gastritis, really nothing severe. We noted H pylori was negative. The biopsies from the upper endoscopy are still pending. There was really no visible obvious esophagitis either. We tried to resume the clear liquids Electronically Signed By: ANDERSON FIELDS MD 05/30/20 0633 PATIENT NAME: MILLA LEI SONYA OPERATIVE REPORT DATE OF : [birth year] REPORT #: [id number] PHYSICIAN: ANDERSON FIELDS MD PCP: [facility] REPORT IS CONFIDENTIAL AND NOT TO BE RELEASED WITHOUT AUTHORIZATION [facility] [address], [place] [address] Signed and even that made sure she is nauseated. Therefore, we did an ultrasound of her gallbladder, it was fine. The liver was not particularly concerning on the ultrasound. Bile duct was fine. We went ahead and ordered a HIDA scan, which completed the next morning around noon. Her gallbladder would not fill without the help of morphine, finally the gallbladder filled. She was given cholecystokinin and the gallbladder ejection fraction was only 16%. Injection of the CCK did not reproduce her symptoms. However, she remained quite nauseated. I met with Milla and her boyfriend, we had a long discussion regarding her test for the last few days. Her liver function tests remained slightly elevated even after hydration. Through to her word, she did not withdraw from any alcohol. We decided to proceed with removal of the gallbladder. We discussed the location and function of the gallbladder. We discussed laparoscopic versus open cholecystectomy. She understands there is risk including, but not limited to bleeding, infection, scarring, change in contour of the skin, damage to bowel, damage to main bile duct, incisional hernias and other unforeseen comorbidities. She had expressed understanding and wished to proceed. PROCEDURE NOTE: Milla was taken into our operating room and placed in the supine position under general endotracheal tube anesthesia. She was given preoperative antibiotics along with subcutaneous Lovenox. SCDs were utilized. She was prepped and draped in the usual sterile fashion. All trocars were placed in usual positions under direct visualization the camera without difficulty. Her entire liver is smooth, but very yellow and pale throughout. The gallbladder was grasped and elevated in the right upper quadrant. She had a few chronic inflammatory changes down around the neck of the gallbladder. This was carefully dissected free and a clip had been placed across the cystic artery and it was divided. The intraoperative cholangiocatheter was inserted into the neck of the gallbladder down into the cystic duct. The intraoperative cholangiogram was found to be unremarkable. We secured the cystic duct stump with PDS Endoloop along with two clips to mouna its location. The gallbladder was then removed from the gallbladder fossa with the help of cautery and placed into an EndoCatch bag. We used our laparoscopic suturing device to pass 0-Vicryl suture on either side of the subxiphoid trocar site. This was tied down to close this fascia primarily. After this, all the gas was allowed to escape and all the trocars were removed. We did not perform a needle biopsy of her liver. We then closed the fascia of the supraumbilical trocar site with interrupted sauhko-le-xqqsk and simple 0-Vicryl sutures. The gallbladder had been opened on the back table by our circulating nurse for photodocumentation. She had very thick bile and appears to have moderate cholesterolosis. Local anesthetic was then injected into all trocar sites. Each trocar site was irrigated and suctioned out until clear. The skin and dermis of each trocar site were closed with interrupted 3-0 subcuticular Monocryl sutures. Dry gauze and tape were applied to all incisions. Milla was awakened from her anesthesia, extubated in the OR, and taken to the recovery room in stable condition. Electronically Signed By: ANDERSON FIELDS MD 05/30/20 0633 PATIENT NAME: MILLA LEI OPERATIVE REPORT DATE OF : [birth year] REPORT #: [id number] PHYSICIAN: ANDERSON FIELDS MD PCP: [facility] REPORT IS CONFIDENTIAL AND NOT TO BE RELEASED WITHOUT AUTHORIZATION [address] [address] Signed Anderson Fields MD ALB/MODL /[id number] cc: [facility] Anderson Fields MD Copies: [facility] ANDERSON FIELDS MD ~ Electronically Signed By: ANDERSON FIELDS MD 05/30/2033 PATIENT NAME: MILLA LEI SONYA OPERATIVE REPORT DATE OF : [birth year] REPORT #: [id number] PHYSICIAN: ANDERSON FIELDS MD PCP: [facility] REPORT IS CONFIDENTIAL AND NOT TO BE RELEASED WITHOUT AUTHORIZATION
--- NOTE | 2020-05-30 12:21 | PATH ---
[facility] [address] [facility] [place], [place] [address] Signed SPECIMEN(S): A DUODENAL BIOPSY SPECIMEN(S): B ANTRUM/PYLORUS SPECIMEN(S): C BODY SPECIMEN SOURCE: A. DUODENAL BIOPSY B. ANTRUM/PYLORUS C. BODY CLINICAL HISTORY: Nausea, vomiting, ETOH, anemia. Post: Gastritis. MICROSCOPIC DESCRIPTION: Histologic sections of all submitted blocks are examined by light microscopy. These findings, together with the gross examination, support the pathologic diagnosis. C. A Helicobacter pylori immunostain is performed on (C1) with appropriate positive and negative controls and is negative for organisms. JVR:[facility] FINAL PATHOLOGIC DIAGNOSIS: A. Duodenal biopsy: - Benign duodenal mucosa, negative for specific diagnostic abnormality. B. Antrum / pylorus: - Antral-type mucosa with focal slight chronic inflammation. - Negative for evidence of Helicobacter organisms on routine HE stained sections. C. Body, biopsy: - Gastric-type mucosa with focal mild chronic inflammation. - A Helicobacter pylori immunostain is negative for organisms. JVR;[facility]:C2NR GROSS DESCRIPTION: Three specimens are received in three containers, labeled "SM." A. The specimen, labeled "SM, duodenum biopsy," is received in formalin and consists of two brock soft tissue fragment(s) that measure 0.2-0.3 cm in greatest dimension. The specimen is entirely submitted in cassette (A1). B. The specimen, labeled "SM, antrum biopsy," is received in formalin and consists of one brock soft tissue fragment(s) that measure 0.2 cm in greatest dimension. The specimen is entirely submitted in cassette (B1). PATIENT NAME: RUSSELL LEI PATHOLOGY DATE OF : [birth year] REPORT #: [id number] PHYSICIAN: TIA CHAVEZ PCP: [facility] REPORT IS CONFIDENTIAL AND NOT TO BE RELEASED WITHOUT AUTHORIZATION [facility] [address] [place], [place] [address] Signed C. The specimen, labeled "SM, stomach body biopsy," is received in formalin and consists of one brock soft tissue fragment(s) that measure 0.4 cm in greatest dimension. The specimen is entirely submitted in cassette (C1). JS (under the direct supervision of a pathologist) The Gross Description was prepared using a voice recognition system. The report was reviewed for accuracy; however, sound-alike word errors, addition and/or deletions may occur. If there is any question about this report, please contact Client Services. PERFORMING LABORATORY: The technical component was performed by [employer], [address] [place] [address] (Farm Equipment Technician: Eliane Mejía MD; CLIA# [id number]). Professional interpretation was performed by [employer], [place] [address]. Diagnostician: Adebayo Ndiaye MD Pathologist Electronically Signed 05/30/2020 Copies: ~ PATIENT NAME: RUSSELL LEI SONYA PATHOLOGY DATE OF : [birth year] REPORT #: [id number] PHYSICIAN: TIA CHAVEZ PCP: [facility] REPORT IS CONFIDENTIAL AND NOT TO BE RELEASED WITHOUT AUTHORIZATION
== END 2020-05-29 20:44 | disposition home or self-care (01) | DRG 419 ==
LOC: ED 14:56 → MS 14:58 → ED 17:50 → MS 05-28 17:14
PROVIDERS: ADMIT Colon & Rectal Surgery; ATTEND Colon & Rectal Surgery
PROC: 0DB98ZX Excision of Duodenum, Via Natural or Artificial Opening Endoscopic, Diagnostic (ICD-10-PCS; 2020-05-27)
PROC: 0DB68ZX Excision of Stomach, Via Natural or Artificial Opening Endoscopic, Diagnostic (ICD-10-PCS; 2020-05-27)
PROC: BF10YZZ Fluoroscopy of Bile Ducts using Other Contrast (ICD-10-PCS; 2020-05-29)
PROC: 0FT44ZZ Resection of Gallbladder, Percutaneous Endoscopic Approach (ICD-10-PCS; principal; 2020-05-29 11:30)
DX: K81.1 Chronic cholecystitis (principal); Z20.822 Contact with and (suspected) exposure to COVID-19; K29.70 Gastritis, unspecified, without bleeding; E86.0 Dehydration; K21.9 Gastro-esophageal reflux disease without esophagitis; D64.9 Anemia, unspecified; F10.11 Alcohol abuse, in remission; E87.6 Hypokalemia; E83.42 Hypomagnesemia; K76.89 Other specified diseases of liver; Z87.891 Personal history of nicotine dependence
CPT/HCPCS: 00790; 36415; 74018; 74300; 76705; 78227; 80053; 81001; 83690; 83735; 84100; 84703; 85025; 86677; 88305; 88342; 94760; 94762; 96372; 96375; 96376; A9537; C9113; C9803; G0378; J0330; J0690; J1100; J1170; J1650; J1885; J2001; J2250; J2270; J2405; J2550; J2704; J2765; J2805; J3010; J3475; J3480; J7030; J7060; J7121; Q9967; U0003

== ENCOUNTER 2020-08-25 21:42 | Emergency (ER) | payer OTHER ==
[~2020-08-25] VITALS: Ht 167.6 cm; Wt 75.8 kg
[~2020-08-25 21:42] MED LIST changes: +ONDANSETRON ODT8 MG PO; +OXYCODONE HCL10 MG PO
[2020-08-26] MEDS ORDERED: HYDROCODON-ACE1 EA10 PO (01:51)
[2020-08-26] MEDS ORDERED: ONDANSETRON ODT8 MG PO (01:51)
--- NOTE | 2020-08-26 07:23 | EKG ---
[facility] [address] [facility] [place] [address] Signed Sinus tachycardia Left posterior fascicular block Anterior infarct , age undetermined Abnormal ECG No previous ECGs available Confirmed by TRENT FOWLER MD ([id number]) on 08/26/2020 7:22:56 AM Electronically Signed By: TRENT FOWLER MD 08/26/20722 PATIENT NAME: RUSSELL LEI SONYA Electrocardiogram DATE OF : [birth year] PHYSICIAN: TRENT FOWLER MD REPORT #: [id number] REPORT IS CONFIDENTIAL AND NOT TO BE RELEASED WITHOUT AUTHORIZATION
[2020-10-09] MEDS ORDERED: ONDANSETRON ODT8 MG PO
[2020-10-09] MEDS ORDERED: IBU600 MG PO
[2020-10-09] MEDS ORDERED: TYLOPHEN500 MG PO
== END 2020-08-26 02:06 | disposition home or self-care (01) ==
LOC: ED 21:42
DX: B34.9 Viral infection, unspecified (principal); Z20.822 Contact with and (suspected) exposure to COVID-19
CPT/HCPCS: 70450; 71045; 80048; 80053; 81001; 83605; 85025; 93005; 93010; 96374; 96375; 96376; 99284-25; C9803; G0480; J1170; J1200; J1885; J2405; J2765; J7030; J7121; U0003

== ENCOUNTER 2020-10-09 21:10 | Emergency (ER) | payer OTHER ==
[~2020-10-09] VITALS: Ht 167.6 cm; Wt 72.6 kg
[~2020-10-09 21:10] MED LIST changes: +HYDROCODON-ACE1 EA10 PO; +IBU600 MG PO; +TYLOPHEN500 MG PO
[2020-10-09] MEDS ORDERED: DOXYCYCLINE MO100 MG PO (21:26)
[2020-10-09] MEDS ORDERED: OMEPRAZOLE20 MG PO (21:27)
--- NOTE | 2020-10-10 14:35 | EKG ---
[facility] [address] [facility] [place] [address] Signed Normal sinus rhythm Low voltage QRS Borderline ECG When compared with ECG of 25-AUG-2020 21:56, Vent. rate has decreased BY 76 BPM Criteria for Anterior infarct are no longer present Nonspecific T wave abnormality no longer evident in Inferior leads Confirmed by TRENT FOWLER MD ([id number]) on 10/10/2020 2:35:35 PM Electronically Signed By: TRENT FOWLER MD 10/10/20 1435 PATIENT NAME: RUSSELL LEI SONYA Electrocardiogram DATE OF : [birth year] PHYSICIAN: TRENT FOWLER MD REPORT #: [id number] REPORT IS CONFIDENTIAL AND NOT TO BE RELEASED WITHOUT AUTHORIZATION
== END 2020-10-10 03:09 | disposition home or self-care (01) ==
LOC: ED 21:10
DX: R51.9 Headache, unspecified (principal); R11.10 Vomiting, unspecified; R10.13 Epigastric pain; Z79.899 Other long term (current) drug therapy
CPT/HCPCS: 80053; 83690; 84484; 84703; 85025; 93005; 93010; 96374; 96375; 99284-25; J1200; J1885; J2765; J7121

== ENCOUNTER 2021-02-27 02:07 | Emergency (ER) | payer OTHER ==
[~2021-02-27] VITALS: Ht 167.6 cm; Wt 80.7 kg
[~2021-02-27 02:07] MED LIST changes: +DOXYCYCLINE MO100 MG PO; +OMEPRAZOLE20 MG PO
--- OUTSIDE RECORDS SUMMARY | 2021-02-27 02:10 | XMS ---
PreManage Notification: RUSSELL LEI Security Residential Leasing Manager Events No recent Security Events currently on file CRITERIA MET - ED - Positive COVID-19 Lab Result - [facility] C[facility] PROVIDERS There are no care providers on record at this time. Jerome has no Care Guidelines for this patient. Marcelino VISIT COUNT (12 MO.) 4 [facility] TOTAL 4 NOTE: Visits indicate total known visits. ED/C VISIT TRACKING (12 MO.) 02/27/2021 02:08 [facility] TYPE: Emergency COMPLAINT: - HEAD AND NECK PAIN/ FALL 10/09/2020 21:11 [facility] TYPE: Emergency COMPLAINT: - VOMITING DIAGNOSES: - Other nursing home (current) drug therapy - Headache, unspecified - Vomiting, unspecified - Epigastric pain 08/25/2020 21:42 [facility] TYPE: Emergency COMPLAINT: - FEVER, BODYACHES DIAGNOSES: - Viral infection, unspecified - Fever, unspecified 05/26/2020 14:57 [facility] TYPE: Emergency COMPLAINT: - DEHYDRATION INPATIENT VISIT TRACKING (12 MO.) 05/28/2020 17:[address] [facility] TYPE: Medical Surgical COMPLAINT: - DEHYDRATION DIAGNOSES: - Hypomagnesemia - Anemia, unspecified - Hypokalemia - Nausea with vomiting, unspecified - Other specified diseases of liver - Chronic cholecystitis - Dehydration - Alcohol abuse, in remission - Gastro-esophageal reflux disease without esophagitis - Dehydration - Personal history of nicotine dependence - Other specified diseases of liver - Hypomagnesemia - Chronic cholecystitis - Gastritis, unspecified, without bleeding - Anemia, unspecified - Hypokalemia - Gastro-esophageal reflux disease without esophagitis - Gastritis, unspecified, without bleeding - Personal history of nicotine dependence - Alcohol abuse, in remission [email or web address]
== END 2021-02-27 03:30 | disposition home or self-care (01) ==
LOC: ED 02:07
DX: S06.0X9A Concussion with loss of consciousness of unspecified duration, initial encounter (principal); S16.1XXA Strain of muscle, fascia and tendon at neck level, initial encounter; F10.129 Alcohol abuse with intoxication, unspecified; Y90.7 Blood alcohol level of 200-239 mg/100 ml; Z79.899 Other long term (current) drug therapy; W00.0XXA Fall on same level due to ice and snow, initial encounter
CPT/HCPCS: 70450; 70486; 72125; 81001; 84703; 85025; 96374; 96375; 99285-25; A9270; G0480; J1170; J2405

== ENCOUNTER 2023-06-17 11:52 | Inpatient (IN) | payer OTHER ==
[~2023-06-17] VITALS: Ht 167.6 cm; Wt 70.3 kg
[2023-06-17 13:06] LABS: BILIRUBIN, URINE POSITIVE (negative); BLOOD/HGB, URINE NEGATIVE (Negative); KETONE, URINE TRACE (Negative); LEUK ESTERASE, URINE NEGATIVE (negative); NITRITE, URINE POSITIVE (negative)
[2023-06-17 13:11] LABS: RED BLOOD CELLS, URINE 0-1 /hpf (0-5)
[2023-06-17 13:12] LABS: BACTERIA, URINE 4+ /hpf (negative); CASTS, URINE NONE SEEN \\lpf; COLLECTION TYPE, URINE CLEAN CATCH; CRYSTALS, URINE NONE SEEN (0-1+); EPITHELIAL CELLS, URINE SQUAMOUS 1+ /lpf (0-1+); REFLEX CULTURE, URINE Yes (No)
[2023-06-17 13:13] LABS: BASOPHILS 0.2 % (0-2); EOSINOPHILS 0.6 % (0-6); HEMATOCRIT 35.8 % (35.0-50.0); HEMOGLOBIN 11.8 g/dL (12.0-18.0); LYMPHOCYTES 24.1 % (24-44); MCH 27.6 (27-36); MCHC 32.8 g/dl (30-36); MCV 84.2 fl (81-99); MONOCYTES 4.8 % (0-12); NEUTROPHILS 70.3 % (39-80); PLATELET COUNT 118 K/uL (140-440); RBC 4.26 M/ul (4.3-5.7); RDW 18.8 (10.5-15.0)
[2023-06-17 13:27] LABS: ALBUMIN 2.8 g/dL (3.4-5.0); ALBUMIN/GLOBULIN RATIO 0.44 (1.1-2.4); ANION GAP 17.5 (7-21); BILIRUBIN, TOTAL 1.1 ng/dL (0.2-1.0); BUN/CREATININE RATIO 3.7 (6.0-28.6); CALCIUM 7.4 mg/dL (8.5-10.1); CREATININE, SERUM 0.54 mg/dL (0.55-1.02); POTASSIUM 3.5 mmol/L (3.5-5.1); PROTEIN, TOTAL 9.1 g/dL (6.4-8.2)
[2023-06-17] MEDS ORDERED: PANTOPRAZOLE SODIUM 40 MG/10 ML VIAL IV ONE (13:30)
[2023-06-17] MEDS ORDERED: SODIUM CHLORIDE 0.9% 1,000 ML IV ONE (13:30)
[2023-06-17] MEDS ORDERED: FOLIC ACID 1 MG TAB PO ONE (13:30)
[2023-06-17] MEDS ORDERED: THIAMINE HCL 200 MG/2 ML VIAL IV ONE (13:30)
[2023-06-17 13:51] LABS: INR 1.39 (0.80-1.30); PROTIME 16.7 Sec (11.2-14.2)
[2023-06-17 13:53] LABS: PARTIAL THROMBOPLASTIN TIME 49.9 Sec (22.9-41.3)
[2023-06-17 14:09] LABS: ABO O; ANTIBODY SCREEN NEGATIVE; RH POSITIVE
[2023-06-17] MEDS ORDERED: PANTOPRAZOLE SODIUM 40 MG/10 ML VIAL IV SCH (14:42)
[2023-06-17] MEDS ORDERED: ondansetron HCL 4 MG/2 ML VIAL IV ONE (14:45)
[2023-06-17] MEDS ORDERED: MULTIVITAMINS/MINERALS 1 EA TAB PO SCH (14:46)
[2023-06-17] MEDS ORDERED: CEFTRIAXONE/SODIUM CHLORIDE 1 GM/100 ML PIGGYBACK IV SCH (15:20)
[2023-06-17 15:25] VITALS: BP 115/73
--- NOTE | 2023-06-17 15:55 | NUR ---
pt resting in bed with call light within reach, awake and alert. pt states she has a headach and rates it as 7/10. pt also c/o occasional nausea. pt states "this is the longest that I have gone without alcohol in 2 years". states last drink was at 0400 this morning. iv antibiotic started as ordered.
[2023-06-17] MEDS ORDERED: POTASSIUM CHLORIDE 20 MEQ/15 ML CUP PO ONE (16:00)
[2023-06-17] MEDS ORDERED: diazePAM 10 MG/2 ML SYR IV PRN (16:15)
[2023-06-17] MEDS ORDERED: ondansetron HCL 4 MG/2 ML VIAL IV PRN (16:15)
[2023-06-17] MEDS ORDERED: THIAMINE HCL 100 MG,FOLIC ACID 1 MG,MULTIVITAMINS 10 ML in SODIUM CHLORIDE 0.9% 1,000 ML IV ONE (16:15)
[2023-06-17] MEDS ORDERED: diazePAM 5 MG TAB PO PRN (16:15)
[2023-06-17] MEDS ORDERED: ACETAMINOPHEN 500 MG TAB PO PRN (16:15)
[2023-06-17] MEDS ORDERED: MAGNESIUM HYDROXIDE 30 ML UDC PO PRN (16:15)
[2023-06-17] MEDS ORDERED: PROCHLORPERAZINE EDISYLATE 10 MG/2 ML VIAL IV PRN (16:15)
[2023-06-17] MEDS ORDERED: TUBERCULIN PPD 5 UNITS/0.1 ML VIAL SUB-Q SCH (16:15)
[2023-06-17] MEDS ORDERED: SOOLANTRA45 GM TOP (16:50)
[2023-06-17] MEDS ORDERED: [UNRECOGNIZED DRUG - OTHER] TOP (16:51)
--- NOTE | 2023-06-17 16:57 | NUR ---
MED REC COMPLETE
[2023-06-17 17:08] VITALS: BP 105/74
--- NOTE | 2023-06-17 17:22 | EKG ---
[facility] [address] [facility] [place] [address] Signed Normal sinus rhythm Cannot rule out Inferior infarct , age undetermined Abnormal ECG No previous ECGs available Confirmed by Mihir Roy ([id number]) on 06/17/2023 5:22:11 PM Electronically Signed By: MIHIR ROY MD 06/17/23 172 PATIENT NAME: RUSSELL LEI SONYA Electrocardiogram DATE OF : [birth year] PHYSICIAN: MIHIR ROY MD REPORT #: [id number] REPORT IS CONFIDENTIAL AND NOT TO BE RELEASED WITHOUT AUTHORIZATION
--- NOTE | 2023-06-17 17:30 | NUR ---
valium given recently for ETOH withdrawl score. will continue to monitor. pt up to void in restroom, tolerated well with sba.
[2023-06-17 18:56] VITALS: BP 103/67
--- NOTE | 2023-06-17 19:06 | NUR ---
shift report recieved from dayshift marii guerrero at bedside, pt resting in bed with eyes closed. on ra, rr even and unlabored. pt awoke to voice, denies needs or concerns, withdrawn affect noted. iv site wnl, banana bag infusing wnl. call light in reach and bed alarm on for safety. will continue to monitor s/sx of withdrawl.
[2023-06-17 19:32] LABS: BASOPHILS 0.6 % (0-2); EOSINOPHILS 0.8 % (0-6); HEMATOCRIT 30.2 % (35.0-50.0); HEMOGLOBIN 9.9 g/dL (12.0-18.0); LYMPHOCYTES 24.4 % (24-44); MCH 27.6 (27-36); MCHC 32.8 g/dl (30-36); MCV 84.3 fl (81-99); MONOCYTES 3.8 % (0-12); NEUTROPHILS 70.4 % (39-80); PLATELET COUNT 98 K/uL (140-440); RBC 3.58 M/ul (4.3-5.7); RDW 18.9 (10.5-15.0)
[2023-06-17] MEDS ORDERED: diazePAM 5 MG TAB PO SCH (20:00)
[2023-06-17 20:11] VITALS: BP 108/76
--- NOTE | 2023-06-17 20:16 | NUR ---
BATTERY ASSEMBLER DRY CELL TOOK VITALS. INPUT RECORDED. NO OUTPUT TO RECORD. BATTERY ASSEMBLER DRY CELL REFILLED ICE CHIPS REQUESTED. PT STATES NO FURTHER NEEDS AT THIS TIME. CALL LIGHT PLACED WITHIN REACH.
--- NOTE | 2023-06-17 20:32 | NUR ---
CIWA SCORE OF 9 R/T REPORTED SEVERE ANXIETY, VISIABLE TREMORS, AND NAUSEA. PRN NAUSEA MEDICATION OFFERED, DECLINED BY pt STATING, "LETS WAIT AND JUST DO THE VALIUM RIGHT NOW". IV SITE WNL, BRISK BLOOD RETURN NOTED. VSS. MOTHER IN ROOM AND TALKING WITH pt. pt UP SBA TO BATHROOMA ND BACK IN BED, STEADY ON FEET. BED ALARM RESUMED, FRESH ICE WATER PROVIDED. CALL LIGHT IN REACH.
[2023-06-17] MEDS ORDERED: MELATONIN 3 MG TAB PO PRN (21:00)
--- NOTE | 2023-06-17 21:15 | NUR ---
PT CALLED IV ALARMING. ONIEL IV COMPLETED, FLUSHED IV, SL. FEMALE AT BEDSIDE, PT AWARE, WATCHING TV. NO CONCERNS RELATED TO WITHDRAWL NOTED, WHILE RN VISITED WITH PT.
--- NOTE | 2023-06-17 21:40 | NUR ---
CIWA SCORE REASSESSED, NOW SCORING A 4. pt DENIES NAUSEA AT THIS TIME BUT REQUESTING SOMETHING TO EAT. SANDWICH BOX, SODA, AND MILK PROVIDED. MOTHER REMAINS IN ROOM, NO ADDITIONAL NEEDS OR CONCERNS VERBALIZED, BED ALARM ON FOR SAFETY.
[2023-06-17 22:15] VITALS: BP 110/83
--- NOTE | 2023-06-17 22:18 | NUR ---
SHODER FILLER ENTERED ROOM AND OBTAINED VITALS. PT WAS SITTING UP IN BED WITH MOM IN ROOM. PT STATES NO FURTHER NEEDS AT THIS TIME. CALL LIGHT PLACED WITHIN REACH.
[2023-06-17 23:13] VITALS: BP 103/68
--- NOTE | 2023-06-17 23:13 | NUR ---
CIWA SCORE OF 4. pt RESTING QUIETLY IN BED, NO DISTRESS NOTED. MOTHER REMAINS IN ROOM, VSS. MOTHER ASKING ABOUT FREQUENCY OF VS-pt AND MOTHER BOTH EDUCATED AND QUESTIOSN ANSWERED REGARDING ALCOLHOL WITHDRAWL PROTOCOL. NO ADDITIONAL NEEDS OR CONCERNS.
[2023-06-18] VITALS (11 sets, daily range): BP systolic 102–114; BP diastolic 62–71
--- NOTE | 2023-06-18 00:10 | NUR ---
rounded on pt, pt resting quietly in bed with eyes closed. rr even and unlabored, no distress noted. pt appears relaxed and comfortable at this time. call light in reach. mother remains in room, resting in chair.
[2023-06-18 01:07] LABS: BASOPHILS 0.4 % (0-2); EOSINOPHILS 0.8 % (0-6); HEMATOCRIT 29.8 % (35.0-50.0); HEMOGLOBIN 9.6 g/dL (12.0-18.0); LYMPHOCYTES 22.9 % (24-44); MCH 27.2 (27-36); MCHC 32.3 g/dl (30-36); MCV 84.2 fl (81-99); MONOCYTES 5.3 % (0-12); NEUTROPHILS 70.6 % (39-80); PLATELET COUNT 91 K/uL (140-440); RBC 3.54 M/ul (4.3-5.7)
--- NOTE | 2023-06-18 02:07 | NUR ---
GROCERY BAGGER ENTERED ROOM AND TOOK VITALS. I AND O RECORDED. GROCERY BAGGER REFILLED ICE WATER PT REQUESTED. PT STATES NO FURTHER NEEDS AT THIS TIME. CALL LIGHT PLACED WITHIN REACH.
--- NOTE | 2023-06-18 02:31 | NUR ---
ciwa score of 8, see documentation of intervention. scheduled valium given-see emar along with prn zofran. iv site wnl, focused assessment completed. no additional needs, call light in reach.
--- NOTE | 2023-06-18 03:30 | NUR ---
SILVER SOLDERER RECENTLY IN ROOM TO COLLECT VS. pt RESTING QUIETLY IN BED, pt REPORTS NAUSEA SUBSIDED. CIWA SCORE IMPROVED, pt APPEARS MORE RELAXED AT THIS TIME. pt DID STATE, "I WAS JUST ASLEEP THEN YOU GUYS CAME IN". THIS RN APOLOGIZED AND pt EDUCATED AGAIN ON CIWA PROTOCOL, pt COMPLIANT WITH CARES. NO ADDITIONAL NEEDS, CALL LIGHT IN REACH.
--- NOTE | 2023-06-18 05:11 | NUR ---
ROUNDED ON pt, pt RESTING IN BED FACING WINDOW. ON RA, RR EVEN AND UNLABORED. pt APPEARS RELAXED RESTING IN BED AT THIS TIME, WILL CONTINUE TO MONITOR FOR CHANGES.
--- NOTE | 2023-06-18 06:15 | NUR ---
FACE BOSS ENTERED ROOM AND TOOK VITALS. NO I AND O NOTED. PT STATED NO FURTHER NEEDS AT THIS TIME. CALL LIGHT PLACED WITHIN REACH.
[2023-06-18 06:18] LABS: BASOPHILS 0.5 % (0-2); EOSINOPHILS 0.7 % (0-6); HEMOGLOBIN 10.2 g/dL (12.0-18.0); LYMPHOCYTES 24.7 % (24-44); MCH 27.1 (27-36); MCV 84.7 fl (81-99); MONOCYTES 5.9 % (0-12); NEUTROPHILS 68.2 % (39-80); PLATELET COUNT 87 K/uL (140-440); RBC 3.78 M/ul (4.3-5.7); RDW 18.8 (10.5-15.0)
--- NOTE | 2023-06-18 06:24 | NUR ---
CIWA SCORE OF 11, PRN VALIUM GIVEN-SEE EMAR. IV SITE WNL, REMAINS SALINE LOCKED. CALL LIGHT IN REACH. VSS.
[2023-06-18 06:36] LABS: ALBUMIN 2.4 g/dL (3.4-5.0); ALBUMIN/GLOBULIN RATIO 0.45 (1.1-2.4); ANION GAP 13.6 (7-21); BILIRUBIN, TOTAL 1.3 ng/dL (0.2-1.0); BUN/CREATININE RATIO 4.16 (6.0-28.6); CALCIUM 6.7 mg/dL (8.5-10.1); CREATININE, SERUM 0.72 mg/dL (0.55-1.02); MAGNESIUM 1.6 mg/dL (1.8-2.4); POTASSIUM 3.6 mmol/L (3.5-5.1); PROTEIN, TOTAL 7.7 g/dL (6.4-8.2)
--- NOTE | 2023-06-18 07:10 | NUR ---
PT ASLEEP WITH RESPIRATIONS EVEN AND UNLABORED, MOTHER IN ROOM AND CALL LIGHT WITHIN REACH.
[2023-06-18] MEDS ORDERED: MAGNESIUM SULFATE 2 GM/50 ML BAG IV ONE (07:45)
[2023-06-18] MEDS ORDERED: CALCIUM CARBONATE 500 MG CHEW PO SCH (08:00)
[2023-06-18] MEDS ORDERED: PANTOPRAZOLE SODIUM 40 MG TABEC PO SCH (09:00)
--- NOTE | 2023-06-18 09:26 | NUR ---
PT ASLEEP WITH RESPIRATIONS EVEN AND UNLABORED, CALL LIGHT WITHIN REACH.
--- NOTE | 2023-06-18 09:53 | NUR ---
VERIFIED THE PPD TEST/MED ORDER FOR PATIENT, VERBAL TO DC ORDER AT THIS TIME. ORDERS UPDATED, PRIMARY RN MARQUIS NOTIFIED.
--- NOTE | 2023-06-18 10:00 | NUR ---
DR IN TO DISCUSS PLAN OF CARE WITH PT, PT STATES UNDERSTANDING.
--- NOTE | 2023-06-18 10:23 | NUR ---
PATIENT AWAKENED WHEN I ENTERED ROOM. WAS ALERT AND ANSWERED ALL QUESTIONS. 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 FEELS FINANCIALLY SECURE FOR FOOD, MEDS, UTILITIES. FEELS SAFE TO RETURN HOME WHERE SHE IS LIVING WITH HER MOTHER. SHE PLANS TO FOLLOW UP WITH [facility] FOR ETOH ABUSE. WANTS TO CONTACT HERSELF. HAS INFORMATION AND NUMBERS ALREADY. SHE KNOWS OF NOTHING NEEDED FOR DISCHARGE. MOTHER WILL PROVIDE TRANSPORTATION AT DISCHARGE.
--- NOTE | 2023-06-18 10:34 | NUR ---
PT GETTING READY TO TAKE SHOWER SO NO VISIT. PROVIDED PRAYER.
--- NOTE | 2023-06-18 11:00 | NUR ---
WRAPPED PATIENT'S IV. WHILE PATIENT WAS IN TAKING HER SHOWER. CHANGED BED LINENS.
[2023-06-18] MEDS ORDERED: PHARMACY RENAL DOSE ADJUSTMENT 1 DOSE MISC PO SCH (12:00)
--- NOTE | 2023-06-18 12:11 | NUR ---
PT TOOK SHOWER AND IS SITTING UP IN THE CHAIR WATCHING TV. CALL LIGHT WITHIN REACH. CIWA SCORE 3. WILL CONTINUE TO MONITOR.
--- NOTE | 2023-06-18 13:58 | NUR ---
CIWA SCORE 3, PT RESTING IN BED WITH CALL LIGHT WITHIN REACH. NO REQUESTS AT THIS TIME.
--- NOTE | 2023-06-18 15:52 | NUR ---
PT SITTING UP IN CHAIR TALKING ON PHONE, NO S/S DISTRESS NOTED.
--- NOTE | 2023-06-18 15:54 | NUR ---
SILVA 4, FOLLOWING PROTOCOL.
--- NOTE | 2023-06-18 17:32 | NUR ---
pt sitting up in bed watching tv, no complaints or requests at this time.
--- NOTE | 2023-06-18 17:57 | NUR ---
PT SITTING UP IN BED EATING DINNER, TOLERATING WELL.
--- NOTE | 2023-06-18 19:33 | NUR ---
RECEIVED REPORT FROM DAY SHIFT RN. PATIENT IS UP IN BR. NO NEEDS NOTED. CALL LIGHT IN REACH.
--- NOTE | 2023-06-18 22:10 | NUR ---
PATIENT ASSESMENT COMPLETED. PATIENTS VITALS TAKEN AND RECORDED. INTAKE AND OUTPUT RECORDED. PATIENT DENIES ANY PAIN OR NAUSEA. PATIENTS CIWA IS NOTED TO BE A 3. PATIENTS PM MEDS GIVEN PER ORDER. IV FLUSHED AND SL PER ORDER. PATIENT PROVIDED SNACK AND FRESH ICE WATER. PATIENT DENIES ANY FURTHER NEEDS. CALL LIGHT IN REACH.
--- NOTE | 2023-06-18 23:59 | NUR ---
PATIENT IS RESTING IN BED WITH EYES CLOSED, RR 17. CALL LIGHT IN REACH.
[2023-06-19] VITALS (7 sets, daily range): BP systolic 96–118; BP diastolic 61–78
--- NOTE | 2023-06-19 00:30 | NUR ---
GOT REPORT FROM PRESCRIPTION EYEGLASS MAKER NURSE. INTO CHECK ON PATIENT HAS SHE CALLED WITH CALL LIGHT. PATIENT ADVISED NURSE SHE USED THE RESTROOM AND SHE WOULD ALSO LIKE HER VITALS TAKEN NOW SO THAT SHE DOES NOT GET WOKE UP AT 2 IF SHE HAPPENS TO FALL ASLEEP. VITALS TAKEN. PATIENT DENIES ANY ANY OTHER CARES AT THIS TIME. BED IN LOW POSITION. PATIENT HAS FLUIDS TO DRINK AT BEDSIDE, RA, SAUL IV.
--- NOTE | 2023-06-19 02:36 | NUR ---
PATIENT CURRENTLY SLEEPING ON HER RIGHT SIDE. REGULAR RESPIRATIONS NOTED.
--- NOTE | 2023-06-19 04:30 | NUR ---
PATIENT CURRENTLY SLEEPING, REGULAR RESPIRATIONS NOTED. PATIENT STAYED ASLEEP WHEN NURSE WENT IN TO CHECK ON HER.
[2023-06-19 05:54] LABS: BASOPHILS 0.9 % (0-2); EOSINOPHILS 0.9 % (0-6); HEMATOCRIT 31.7 % (35.0-50.0); HEMOGLOBIN 10.3 g/dL (12.0-18.0); LYMPHOCYTES 25.5 % (24-44); MCH 27.3 (27-36); MCHC 32.6 g/dl (30-36); MCV 83.9 fl (81-99); NEUTROPHILS 67.7 % (39-80); PLATELET COUNT 98 K/uL (140-440); RBC 3.77 M/ul (4.3-5.7); RDW 18.7 (10.5-15.0)
[2023-06-19 06:01] LABS: CALCIUM IONIZED PH 7.4 1.07 mmol/L (1.09-1.30); CALCIUM,IONIZED SERUM 1.02 mmol/L (1.09-1.30)
--- NOTE | 2023-06-19 06:07 | NUR ---
BEAM PRESS OPERATOR ENTERED ROOM AND OBTAINED VITALS. I AND O DOCUMENTED. PT STATES NO FURTHER NEEDS AT THIS TIME. CALL LIGHT PLACED WITHIN REACH.
[2023-06-19 06:14] LABS: ALBUMIN 2.5 g/dL (3.4-5.0); ALBUMIN/GLOBULIN RATIO 0.45 (1.1-2.4); ANION GAP 12.7 (7-21); BILIRUBIN, TOTAL 1.3 ng/dL (0.2-1.0); BUN/CREATININE RATIO 3.22 (6.0-28.6); CALCIUM 7.6 mg/dL (8.5-10.1); CREATININE, SERUM 0.62 mg/dL (0.55-1.02); MAGNESIUM 2.1 mg/dL (1.8-2.4); POTASSIUM 3.7 mmol/L (3.5-5.1)
--- NOTE | 2023-06-19 06:57 | NUR ---
spoke to dr maldonado at rn station. per dr maldonado, no need for dr parekh to consult. read back to confirm.
[2023-06-19] MEDS ORDERED: DOXYCYCLINE HYCLATE 100 MG CAP PO SCH (09:00)
--- NOTE | 2023-06-19 09:30 | NUR ---
FULL BODY ASSESSMENT DONE. ADMINISTERED MORNING MEDICATIONS. PATIENT UP TO BATHROOM. INDEPENDANT IN ROOM. DISCUSSED POC FOR DAY. SET PATIENT UP FOR URINE CATCH TO SCREEN FOR STI.
--- NOTE | 2023-06-19 10:52 | NUR ---
URINE SAMPLE SENT.
[2023-06-19 12:06] LABS: N. GONORRRHOEAE BY PCR NOT DETECTED (NOT DETECT)
--- NOTE | 2023-06-19 15:00 | NUR ---
PATIENT TOOK A SHOWER. PATIENT IS INDEPENDENT.
--- NOTE | 2023-06-19 15:20 | NUR ---
PATIENT UP TO SHOWER, WRAPPED IV SITE. CIWA 1, PATIENT REPORTS SOME NAUSEA, STATES " I DON'T NORMALLY EAT SO MUCH AT HOME". CHANGED LINEN WITH SOLAR SYSTEM INSTALLER. LUNG SOUNDS CLEAR, ABDOMEN SOFT WITH ACTIVE BOWEL TONES. [id number]. PROVIDED FRESH ICE WATER AND GENGER MARITZA.
--- NOTE | 2023-06-19 16:00 | NUR ---
PATIENT WALKED TWO LAPS AROUND MED SURG.
--- NOTE | 2023-06-19 19:14 | NUR ---
BEDSIDE REPORT RECEIVED FROM MONICA TAYLOR, PT AWAKE AND ALERT, WITHOUT COMPLAINTS AT THIS TIME.
--- NOTE | 2023-06-19 20:30 | NUR ---
PT AWAKE AND ALERT, CALM, VS STABLE, ASSESSMENT DONE, WITHDRAWL SCREEN SCORE 1 DUE TO PT FEELING FAINT TREMORS IN HANDS, THIS NOT FELT PER RN, PT REQUESTING HER SNACK, ATE A SANDWICH, STATES SHE IS NOT USED TO EATING DAILY DUE TO HER EX BOYFRIEND NOT WANTING HER TO GET FAT, SUPPORT GIVEN, DISCUSSED IMPORTANCE OF HEALTHY DIET, PT DENIES PAIN, RT VALIUM GIVEN PER ORDER, PT HOPING TO REST.
--- NOTE | 2023-06-19 23:00 | NUR ---
PT LAYING ON LEFT SIDE, APPEARS TO SLEEP, RESP EVEN AND REG, WITHOUT DISTRESS.
--- NOTE | 2023-06-20 00:52 | NUR ---
PT APPEARS TO SLEEP, RESP EVEN AND REG, LAYING ON BACK WITH HOB ELEVATED APPROX 20 DEGREES, BASED ON PREVIOUS WITHDRAW SCORE OF 1 BUT NOT AWAKEN AT THIS TIME.
--- NOTE | 2023-06-20 02:25 | NUR ---
PT CONTINUES TO SLEEP, RESP EVEN AND REG, WITHOUT SIGNS OF DISTRESS.
--- NOTE | 2023-06-20 03:15 | NUR ---
PT AWAKE, RECENTLY VOIDED 600ML LIGHT YELLOW URINE, ACCUCHECK DONE, BS 455, PT REMAINS ALERT, WITHOUT SYMPTOMS.
--- NOTE | 2023-06-20 03:20 | NUR ---
TC TO DR AGUIRRE CONCERNING ELEVATED BLOOD SUGAR OF 455, ORDERS RECEIVED FOR HUMOLOG 11U SQ NOW AND LONG ACTING (GLARAGINE) 20U SQ NOW.
--- NOTE | 2023-06-20 03:50 | NUR ---
PT APPEARS TO SLEEP, RESP EVEN AND REG, WITHOUT DISTRESS.
--- NOTE | 2023-06-20 03:55 | NUR ---
PT AWAKE, INSULIN GIVEN PER ORDER, HUMOLOG 11U SQ AND GLARAGINE 20U SQ, PT DENIES NEEDS AT THIS TIME, PT RESTING.
[2023-06-20 05:15] VITALS: BP 105/68
--- NOTE | 2023-06-20 05:15 | NUR ---
LAB IN FOR AM BLOOD DRAW, PT WITH FACE COVERED WITH BLANKET D/T BRIGHT LIGHT, VS DONE AND STABLE, PT WITHOUT SIGNS OF WITHDRAW, NO C/O VOICED, PT VOIDING WELL DURING NIGHT.
[2023-06-20 05:35] LABS: BASOPHILS 0.3 % (0-2); HEMATOCRIT 31.1 % (35.0-50.0); HEMOGLOBIN 10.2 g/dL (12.0-18.0); LYMPHOCYTES 21.2 % (24-44); MCH 27.5 (27-36); MCHC 32.9 g/dl (30-36); MCV 83.8 fl (81-99); MONOCYTES 4.8 % (0-12); NEUTROPHILS 72.7 % (39-80); PLATELET COUNT 110 K/uL (140-440); RBC 3.71 M/ul (4.3-5.7); RDW 18.8 (10.5-15.0)
[2023-06-20 05:51] LABS: ALBUMIN 2.6 g/dL (3.4-5.0); ALBUMIN/GLOBULIN RATIO 0.46 (1.1-2.4); ANION GAP 11.5 (7-21); BILIRUBIN, TOTAL 1.2 ng/dL (0.2-1.0); BUN/CREATININE RATIO 5.88 (6.0-28.6); CALCIUM 7.8 mg/dL (8.5-10.1); CREATININE, SERUM 0.68 mg/dL (0.55-1.02); MAGNESIUM 1.9 mg/dL (1.8-2.4); POTASSIUM 3.5 mmol/L (3.5-5.1); PROTEIN, TOTAL 8.2 g/dL (6.4-8.2)
--- NOTE | 2023-06-20 07:25 | NUR ---
PT ASLEEP IN BED WITH RESPIRATIONS EVEN ADN UNLABORED. CALL LIGHT WITHIN REACH.
[2023-06-20 08:50] LABS: HIV 1,2 COMBO ANTIGEN/ANTIBODY Negative (Negative)
--- NOTE | 2023-06-20 09:00 | NUR ---
SILVA COMPLETE. PT STATES SHE IS FEELING GOOD THIS MORNING, NO COMPLAINTS OR REQUESTS.
[2023-06-20 09:54] VITALS: BP 96/65
--- NOTE | 2023-06-20 10:00 | NUR ---
PATIENT LAYING IN BED. CUP OF ICE GIVEN. VITALS AND I/O'S COMPLETED. PT HAS NO OTHER REQUESTS AT THIS TIME CALL LIGHT WITHIN REACH.
[2023-06-20 10:32] VITALS: BP 96/65
--- NOTE | 2023-06-20 11:50 | NUR ---
pt asleep in bed, respirations even and unlabored. call light within reach.
--- NOTE | 2023-06-20 13:10 | NUR ---
PT SITTING UP IN BED EATING LUNCH AND TALKING ON THE PHONE. NO REQUESTS AT THIS TIME. CALLL LIGHT WITHIN REACH.
[2023-06-20] MEDS ORDERED: DOXYCYCLINE HY100 MG PO (13:21)
[2023-06-20] MEDS ORDERED: CEFDINIR300 MG PO (13:22)
[2023-06-20] MEDS ORDERED: DIAZEPAM PO (13:23)
[2023-06-20] MEDS ORDERED: DIAZEPAM5 MG PO (13:27)
[2023-06-20 13:55] VITALS: BP 113/63
--- NOTE | 2023-06-20 14:56 | NUR ---
PT JUST SHOWERED AND DRESSED, TOLERATED WELL. DC INSTRUCTIONS GIVEN, WRITTEN AND VERBAL. PT STATES UNDERSTANDING. PHARMACIST IN NOW TO TALK TO PT.
== END 2023-06-20 15:04 | disposition home or self-care (01) | DRG 897 ==
LOC: ED 11:52 → MS 14:52
PROVIDERS: Emergency Medicine; ADMIT Family Medicine; ATTEND Family Medicine
DX: F10.239 Alcohol dependence with withdrawal, unspecified (principal); K92.0 Hematemesis; N39.0 Urinary tract infection, site not specified; E87.6 Hypokalemia; D64.9 Anemia, unspecified; L71.9 Rosacea, unspecified; E83.51 Hypocalcemia; Z90.49 Acquired absence of other specified parts of digestive tract; Z90.89 Acquired absence of other organs; Z79.899 Other long term (current) drug therapy; Z87.891 Personal history of nicotine dependence
CPT/HCPCS: 36415; 80053; 81001; 83735; 84100; 84703; 85025; 85610; 85730; 86850; 86900; 86901; 87088; 87491; 93005; 93010; A9270; C9113; G0480; J0696; J0780; J2405; J3411; J3475; J7030

== ENCOUNTER 2024-04-06 10:39 | Inpatient (IN) | payer OTHER ==
[~2024-04-06] VITALS: Ht 165.1 cm; Wt 60.1 kg
[~2024-04-06 10:39] MED LIST changes: +CEFDINIR300 MG PO; +DIAZEPAM PO; +DIAZEPAM5 MG PO; +DOXYCYCLINE HY100 MG PO; +SOOLANTRA45 GM TOP; +[UNRECOGNIZED DRUG - OTHER] TOP
[2024-04-06 11:20] LABS: BASOPHILS 0.4 % (0-2); EOSINOPHILS 0.7 % (0-6); HEMATOCRIT 25.1 % (35.0-50.0); HEMOGLOBIN 8.2 g/dL (12.0-18.0); LYMPHOCYTES 20.4 % (24-44); MCH 27.3 (27-36); MCHC 32.7 g/dl (30-36); MCV 83.6 fl (81-99); MONOCYTES 3.6 % (0-12); NEUTROPHILS 74.9 % (39-80); PLATELET COUNT 56 K/uL (140-440); RDW 25.6 (10.5-15.0)
[2024-04-06 11:36] LABS: ALBUMIN 2.6 g/dL (3.4-5.0); ALBUMIN/GLOBULIN RATIO 0.39 (1.1-2.4); ANION GAP 17.3 (7-21); BILIRUBIN, TOTAL 6.4 ng/dL (0.2-1.0); BUN/CREATININE RATIO 3.75 (6.0-28.6); CREATININE, SERUM 0.8 mg/dL (0.55-1.02); POTASSIUM 3.3 mmol/L (3.5-5.1); PROTEIN, TOTAL 9.2 g/dL (6.4-8.2)
[2024-04-06] MEDS ORDERED: SODIUM CHLORIDE 0.9% 1,000 ML IV PRN (12:00)
[2024-04-06] MEDS ORDERED: ondansetron HCL 4 MG/2 ML VIAL IV ONE (13:15)
[2024-04-06 18:01] LABS: INR 1.9 (0.80-1.30); PROTIME 21.8 Sec (11.2-14.2)
[2024-04-06] MEDS ORDERED: MORPHINE SULFATE 4 MG/ML VIAL IV ONE (18:15)
[2024-04-06] MEDS ORDERED: LORazepam 2 MG/ML VIAL IV ONE (19:00)
[2024-04-06] MEDS ORDERED: PANTOPRAZOLE SODIUM 40 MG TABEC PO SCH (19:09)
[2024-04-06] MEDS ORDERED: LORazepam 2 MG/ML VIAL IV/IM PRN (19:15)
[2024-04-06] MEDS ORDERED: LACTATED RINGER'S 1,000 ML IV SCH (19:15)
[2024-04-06] MEDS ORDERED: ACETAMINOPHEN 325 MG TAB PO PRN (19:15)
[2024-04-06] MEDS ORDERED: methylPREDNISolone SOD SUCC 40 MG/ML VIAL IV SCH (19:15)
[2024-04-06] MEDS ORDERED: THIAMINE HCL 100 MG,FOLIC ACID 1 MG,MULTIVITAMINS 10 ML in SODIUM CHLORIDE 0.9% 1,000 ML IV ONE (19:15)
[2024-04-06] MEDS ORDERED: ondansetron HCL 4 MG/2 ML VIAL IV PRN (19:15)
[2024-04-06] MEDS ORDERED: LORazepam 0.5 MG TAB PO PRN (19:15)
[2024-04-06] MEDS ORDERED: FOLIC ACID 1 MG/0.2 ML ML ONE (19:17)
[2024-04-06] MEDS ORDERED: POTASSIUM CHLORIDE 10 MEQ TABCR PO ONE (19:45)
[2024-04-06 19:56] VITALS: BP 109/61
[2024-04-06 20:30] VITALS: BP 99/59
[2024-04-06] MEDS ORDERED: PANTOPRAZOLE SO40 MG PO (20:40)
[2024-04-06 21:00] VITALS: BP 90/59
[2024-04-06] MEDS ORDERED: MELATONIN 3 MG TAB PO PRN (21:00)
[2024-04-06 21:30] VITALS: BP 106/69
[2024-04-06 22:46] VITALS: BP 107/75
[2024-04-06] MEDS ORDERED: HYDROmorphone HCL 1 MG/ML SYR IV PRN (23:45)
[2024-04-07] VITALS (19 sets, daily range): BP systolic 98–116; BP diastolic 57–78
[2024-04-07 05:37] LABS: BASOPHILS 1.3 % (0-2); HEMATOCRIT 20.6 % (35.0-50.0); HEMOGLOBIN 6.9 g/dL (12.0-18.0); LYMPHOCYTES 8.4 % (24-44); MCH 27.8 (27-36); MCHC 33.5 g/dl (30-36); MCV 82.8 fl (81-99); MONOCYTES 1.4 % (0-12); NEUTROPHILS 88.9 % (39-80); RBC 2.48 M/ul (4.3-5.7); RDW 25.7 (10.5-15.0)
[2024-04-07 05:48] LABS: PLATELET COUNT 44 K/uL (140-440)
[2024-04-07 05:50] LABS: SMEAR REVIEW BLOOD SEE COMMENTS
[2024-04-07 05:56] LABS: ALBUMIN/GLOBULIN RATIO 0.32 (1.1-2.4); ANION GAP 9.9 (7-21); BILIRUBIN, TOTAL 5.9 ng/dL (0.2-1.0); BUN/CREATININE RATIO 6.34 (6.0-28.6); CALCIUM 7.6 mg/dL (8.5-10.1); CREATININE, SERUM 0.63 mg/dL (0.55-1.02); MAGNESIUM 1.2 mg/dL (1.8-2.4); PHOSPHORUS, INORGANIC 3.8 mg/dL (2.5-4.9); POTASSIUM 3.9 mmol/L (3.5-5.1); PROTEIN, TOTAL 8.2 g/dL (6.4-8.2)
[2024-04-07 06:02] LABS: INR 2.13 (0.80-1.30); PROTIME 23.9 Sec (11.2-14.2)
[2024-04-07] MEDS ORDERED: MAGNESIUM SULFATE 2 GM/50 ML BAG IV SCH (06:15)
[2024-04-07 08:20] LABS: ABO O; ANTIBODY SCREEN NEGATIVE; RH POSITIVE
[2024-04-07 08:21] LABS: IS CROSSMATCH COMPATIBLE
[2024-04-07] MEDS ORDERED: PHARMACY RENAL DOSE ADJUSTMENT 1 DOSE MISC PO SCH (12:00)
[2024-04-07 20:39] LABS: BASOPHILS 0.2 % (0-2); HEMATOCRIT 24.5 % (35.0-50.0); HEMOGLOBIN 8.1 g/dL (12.0-18.0); LYMPHOCYTES 14.3 % (24-44); MCH 28.3 (27-36); MCHC 32.9 g/dl (30-36); MCV 85.9 fl (81-99); MONOCYTES 2.9 % (0-12); NEUTROPHILS 82.6 % (39-80); RBC 2.85 M/ul (4.3-5.7); RDW 23.1 (10.5-15.0)
[2024-04-07 20:50] LABS: ANION GAP 9.8 (7-21); BUN/CREATININE RATIO 8.47 (6.0-28.6); CALCIUM 7.7 mg/dL (8.5-10.1); CREATININE, SERUM 0.59 mg/dL (0.55-1.02); MAGNESIUM 1.8 mg/dL (1.8-2.4); POTASSIUM 3.8 mmol/L (3.5-5.1)
[2024-04-07 20:53] LABS: PLATELET COUNT 37 K/uL (140-440)
[2024-04-07] MEDS ORDERED: LORazepam 2 MG/ML VIAL IV/IM PRN (21:45)
[2024-04-07] MEDS ORDERED: ALBUTEROL SULFATE 0.083% 3 ML VIAL INH PRN (23:30)
[2024-04-08] VITALS (19 sets, daily range): BP systolic 94–122; BP diastolic 52–85
[2024-04-08 05:39] LABS: INR 2.03 (0.80-1.30)
[2024-04-08 05:54] LABS: ALBUMIN 1.9 g/dL (3.4-5.0); ALBUMIN/GLOBULIN RATIO 0.34 (1.1-2.4); ANION GAP 10.7 (7-21); BILIRUBIN, TOTAL 5.8 mg/dL (0.2-1.0); BUN/CREATININE RATIO 10.34 (6.0-28.6); CALCIUM 7.6 mg/dL (8.5-10.1); CREATININE, SERUM 0.58 mg/dL (0.55-1.02); MAGNESIUM 1.6 mg/dL (1.8-2.4); POTASSIUM 3.7 mmol/L (3.5-5.1); PROTEIN, TOTAL 7.5 g/dL (6.4-8.2)
[2024-04-08 06:15] LABS: BASOPHILS 0.5 % (0-2); EOSINOPHILS 0.2 % (0-6); HEMATOCRIT 24.3 % (35.0-50.0); LYMPHOCYTES 22.3 % (24-44); MCH 28.1 (27-36); MCV 85.3 fl (81-99); MONOCYTES 4.2 % (0-12); NEUTROPHILS 72.8 % (39-80); RBC 2.85 M/ul (4.3-5.7); RDW 23.4 (10.5-15.0)
[2024-04-08 06:27] LABS: PLATELET COUNT 56 K/uL (140-440)
[2024-04-08] MEDS ORDERED: MAGNESIUM SULFATE 2 GM/50 ML BAG IV ONE (08:00)
[2024-04-08 08:36] LABS: BILIRUBIN, URINE POSITIVE (negative); BLOOD/HGB, URINE NEGATIVE (Negative); KETONE, URINE NEGATIVE (Negative); LEUK ESTERASE, URINE TRACE (negative); NITRITE, URINE NEGATIVE (negative)
[2024-04-08 08:38] LABS: EPITHELIAL CELLS, URINE SQUAMOUS 2+ /lpf (0-1+)
[2024-04-08 08:39] LABS: BACTERIA, URINE 4+ /hpf (negative); CASTS, URINE NONE SEEN \\lpf; COLLECTION TYPE, URINE CLEAN CATCH; CRYSTALS, URINE NONE SEEN (0-1+); RED BLOOD CELLS, URINE 0-1 /hpf (0-5); REFLEX CULTURE, URINE No (No)
[2024-04-08] MEDS ORDERED: LORazepam 2 MG/ML VIAL IV/IM PRN (08:45)
[2024-04-08] MEDS ORDERED: OXYCODONE HCL 5 MG TAB PO PRN (09:45)
[2024-04-08] MEDS ORDERED: LACTULOSE 20 GM/30 ML CUP PO SCH (10:41)
[2024-04-08] MEDS ORDERED: CEFTRIAXONE/SODIUM CHLORIDE 2 GM/100 ML PIGGYBACK IV SCH (21:00)
[2024-04-09] VITALS (9 sets, daily range): BP systolic 93–116; BP diastolic 55–86
[2024-04-09 05:27] LABS: EOSINOPHILS 0.3 % (0-6); HEMATOCRIT 22.3 % (35.0-50.0); HEMOGLOBIN 7.5 g/dL (12.0-18.0); LYMPHOCYTES 23.6 % (24-44); MCH 28.8 (27-36); MCHC 33.5 g/dl (30-36); MCV 85.7 fl (81-99); MONOCYTES 4.4 % (0-12); NEUTROPHILS 70.7 % (39-80); PLATELET COUNT 58 K/uL (140-440); RDW 24.2 (10.5-15.0)
[2024-04-09 05:43] LABS: ALBUMIN 1.9 g/dL (3.4-5.0); ALBUMIN/GLOBULIN RATIO 0.34 (1.1-2.4); ANION GAP 9.4 (7-21); BILIRUBIN, TOTAL 4.8 mg/dL (0.2-1.0); CALCIUM 7.7 mg/dL (8.5-10.1); CREATININE, SERUM 0.75 mg/dL (0.55-1.02); MAGNESIUM 1.5 mg/dL (1.8-2.4); PHOSPHORUS, INORGANIC 3.1 mg/dL (2.5-4.9); POTASSIUM 3.4 mmol/L (3.5-5.1); PROTEIN, TOTAL 7.5 g/dL (6.4-8.2)
[2024-04-09 05:58] LABS: INR 2.02 (0.80-1.30); PROTIME 22.8 Sec (11.2-14.2)
[2024-04-09] MEDS ORDERED: bisacodyL 10 MG SUPP PR ONE (06:45)
[2024-04-09] MEDS ORDERED: MAGNESIUM OXIDE 400 MG TABLET PO ONE (07:45)
[2024-04-09] MEDS ORDERED: POTASSIUM CHLORIDE 10 MEQ TABCR PO ONE (07:45)
[2024-04-09] MEDS ORDERED: MAGNESIUM OXIDE 400 MG TABLET ONE (09:17)
[2024-04-10] VITALS (8 sets, daily range): BP systolic 97–121; BP diastolic 56–81
[2024-04-10 05:40] LABS: BASOPHILS 0.6 % (0-2); EOSINOPHILS 0.6 % (0-6); HEMATOCRIT 25.9 % (35.0-50.0); HEMOGLOBIN 8.6 g/dL (12.0-18.0); LYMPHOCYTES 22.2 % (24-44); MCH 29.1 (27-36); MCHC 33.1 g/dl (30-36); MCV 87.7 fl (81-99); MONOCYTES 4.4 % (0-12); NEUTROPHILS 72.2 % (39-80); PLATELET COUNT 69 K/uL (140-440); RBC 2.95 M/ul (4.3-5.7); RDW 24.5 (10.5-15.0)
[2024-04-10 05:50] LABS: INR 1.94 (0.80-1.30); PROTIME 22.2 Sec (11.2-14.2)
[2024-04-10 05:56] LABS: ALBUMIN 2.1 g/dL (3.4-5.0); ALBUMIN/GLOBULIN RATIO 0.36 (1.1-2.4); ANION GAP 10.5 (7-21); BILIRUBIN, TOTAL 4.4 mg/dL (0.2-1.0); BUN/CREATININE RATIO 11.84 (6.0-28.6); CALCIUM 7.8 mg/dL (8.5-10.1); CREATININE, SERUM 0.76 mg/dL (0.55-1.02); MAGNESIUM 1.7 mg/dL (1.8-2.4); PHOSPHORUS, INORGANIC 3.4 mg/dL (2.5-4.9); POTASSIUM 3.5 mmol/L (3.5-5.1); PROTEIN, TOTAL 7.9 g/dL (6.4-8.2)
[2024-04-11] VITALS (10 sets, daily range): BP systolic 97–123; BP diastolic 55–76
[2024-04-11 05:22] LABS: BASOPHILS 1.4 % (0-2); EOSINOPHILS 0.7 % (0-6); HEMATOCRIT 23.6 % (35.0-50.0); LYMPHOCYTES 18.8 % (24-44); MCH 29.4 (27-36); MCHC 33.8 g/dl (30-36); MONOCYTES 4.8 % (0-12); NEUTROPHILS 74.3 % (39-80); PLATELET COUNT 51 K/uL (140-440); RBC 2.71 M/ul (4.3-5.7); RDW 25.5 (10.5-15.0)
[2024-04-11 05:32] LABS: INR 2.12 (0.80-1.30); PROTIME 23.8 Sec (11.2-14.2)
[2024-04-11 05:34] LABS: SMEAR REVIEW BLOOD SEE COMMENTS
[2024-04-11 05:37] LABS: ALBUMIN/GLOBULIN RATIO 0.38 (1.1-2.4); ANION GAP 10.2 (7-21); BILIRUBIN, TOTAL 3.6 mg/dL (0.2-1.0); BUN/CREATININE RATIO 10.25 (6.0-28.6); CALCIUM 7.6 mg/dL (8.5-10.1); CREATININE, SERUM 0.78 mg/dL (0.55-1.02); MAGNESIUM 1.7 mg/dL (1.8-2.4); POTASSIUM 3.2 mmol/L (3.5-5.1); PROTEIN, TOTAL 7.3 g/dL (6.4-8.2)
[2024-04-11] MEDS ORDERED: prednisoLONE 15 MG/5 ML ML PO SCH (09:00)
[2024-04-11] MEDS ORDERED: POTASSIUM CHLORIDE 10 MEQ TABCR PO ONE (09:00)
[2024-04-11] MEDS ORDERED: CEFTRIAXONE SODIUM 2 GM VIAL ONE ×2 (20:26→20:28)
[2024-04-11] MEDS ORDERED: CEFTRIAXONE SODIUM 2 GM in SODIUM CHLORIDE 0.9% 100 ML IV SCH (21:00)
[2024-04-12] VITALS (8 sets, daily range): BP systolic 103–124; BP diastolic 55–68
[2024-04-12 05:42] LABS: BASOPHILS 0.7 % (0-2); EOSINOPHILS 0.5 % (0-6); HEMATOCRIT 24.4 % (35.0-50.0); HEMOGLOBIN 8.2 g/dL (12.0-18.0); MCH 29.5 (27-36); MCHC 33.6 g/dl (30-36); MONOCYTES 5.2 % (0-12); NEUTROPHILS 74.6 % (39-80); PLATELET COUNT 61 K/uL (140-440); RBC 2.78 M/ul (4.3-5.7); RDW 25.9 (10.5-15.0)
[2024-04-12 05:55] LABS: SMEAR REVIEW BLOOD SEE COMMENTS
[2024-04-12 05:58] LABS: ALBUMIN/GLOBULIN RATIO 0.38 (1.1-2.4); ANION GAP 10.4 (7-21); BILIRUBIN, TOTAL 3.3 mg/dL (0.2-1.0); BUN/CREATININE RATIO 15.27 (6.0-28.6); CALCIUM 7.4 mg/dL (8.5-10.1); CREATININE, SERUM 0.72 mg/dL (0.55-1.02); MAGNESIUM 1.8 mg/dL (1.8-2.4); POTASSIUM 3.4 mmol/L (3.5-5.1); PROTEIN, TOTAL 7.2 g/dL (6.4-8.2)
[2024-04-12 06:12] LABS: INR 2.05 (0.80-1.30); PROTIME 23.1 Sec (11.2-14.2)
[2024-04-12] MEDS ORDERED: POTASSIUM CHLORIDE 10 MEQ TABCR PO ONE (09:00)
[2024-04-12] MEDS ORDERED: LACTULOSE 20 GM/30 ML CUP PO SCH (21:00)
[2024-04-13 05:29] VITALS: BP 106/52
[2024-04-13 05:33] LABS: BASOPHILS 1.5 % (0-2); EOSINOPHILS 0.5 % (0-6); HEMATOCRIT 24.5 % (35.0-50.0); HEMOGLOBIN 8.2 g/dL (12.0-18.0); LYMPHOCYTES 20.4 % (24-44); MCH 29.7 (27-36); MCHC 33.3 g/dl (30-36); MCV 89.3 fl (81-99); MONOCYTES 5.8 % (0-12); NEUTROPHILS 71.8 % (39-80); PLATELET COUNT 66 K/uL (140-440); RBC 2.75 M/ul (4.3-5.7); RDW 26.5 (10.5-15.0)
[2024-04-13 05:49] VITALS: BP 106/52
[2024-04-13 05:49] LABS: SMEAR REVIEW BLOOD SEE COMMENTS
[2024-04-13 05:56] LABS: ALBUMIN/GLOBULIN RATIO 0.4 (1.1-2.4); ANION GAP 8.6 (7-21); BILIRUBIN, TOTAL 3.3 mg/dL (0.2-1.0); BUN/CREATININE RATIO 13.43 (6.0-28.6); CALCIUM 7.6 mg/dL (8.5-10.1); CREATININE, SERUM 0.67 mg/dL (0.55-1.02); MAGNESIUM 1.9 mg/dL (1.8-2.4); POTASSIUM 3.6 mmol/L (3.5-5.1)
[2024-04-13 06:02] LABS: INR 1.85 (0.80-1.30); PROTIME 21.3 Sec (11.2-14.2)
[2024-04-13] MEDS ORDERED: LACTULOSE10 GM/151 PO (08:15)
[2024-04-13] MEDS ORDERED: POTASSIUM CHLORIDE 10 MEQ TABCR PO ONE (09:00)
[2024-04-13] MEDS ORDERED: PREDNISOLO15 MG/5 M1 PO (09:04)
[2024-04-13] MEDS ORDERED: PREDNISOLO15 MG/5 ML PO (09:04)
[2024-04-13 09:55] VITALS: BP 113/59
[2024-04-13 09:58] VITALS: BP 113/59
== END 2024-04-13 10:10 | disposition home or self-care (01) | DRG 433 ==
LOC: ED 10:39 → CCU 19:27 → MS 04-10 13:35
PROVIDERS: Internal Medicine; Student in an Organized Health Care Education/Training Program; ADMIT Student in an Organized Health Care Education/Training Program; ATTEND Student in an Organized Health Care Education/Training Program
PROC: 30233N1 Transfusion of Nonautologous Red Blood Cells into Peripheral Vein, Percutaneous Approach (ICD-10-PCS; principal; 2024-04-07)
DX: K70.10 Alcoholic hepatitis without ascites (principal); E72.20 Disorder of urea cycle metabolism, unspecified; F10.239 Alcohol dependence with withdrawal, unspecified; K76.82 Hepatic encephalopathy; F10.229 Alcohol dependence with intoxication, unspecified; R91.1 Solitary pulmonary nodule; Y90.8 Blood alcohol level of 240 mg/100 ml or more; N94.89 Other specified conditions associated with female genital organs and menstrual cycle; E87.6 Hypokalemia; E80.6 Other disorders of bilirubin metabolism; D69.59 Other secondary thrombocytopenia; E83.42 Hypomagnesemia; Z90.49 Acquired absence of other specified parts of digestive tract
CPT/HCPCS: 36415; 36430; 72170; 74177; 80048; 80053; 81001; 82140; 83735; 84100; 84702; 85025; 85060; 85610; 86850; 86900; 86901; 86922; 97161; 97165; A9270; G0480; J0696; J1171; J2060; J2270; J2405; J2919; J3411; J3475; J7030; J7121; J7510; P9016; Q9967

== ENCOUNTER 2024-06-03 22:51 | Emergency (ER) | payer BC, OTHER ==
[~2024-06-03] VITALS: Ht 165.1 cm; Wt 66.5 kg
[~2024-06-03 22:51] MED LIST changes: +LACTULOSE10 GM/151 PO; +PANTOPRAZOLE SO40 MG PO; +PREDNISOLO15 MG/5 M1 PO; +PREDNISOLO15 MG/5 ML PO
[2024-06-04 00:36] LABS: BASOPHILS 0.8 % (0-2); EOSINOPHILS 0.2 % (0-6); HEMATOCRIT 29.4 % (35.0-50.0); HEMOGLOBIN 9.8 g/dL (12.0-18.0); LYMPHOCYTES 17.6 % (24-44); MCH 28.6 (27-36); MCHC 33.4 g/dl (30-36); MCV 85.7 fl (81-99); MONOCYTES 4.1 % (0-12); NEUTROPHILS 77.3 % (39-80); PLATELET COUNT 61 K/uL (140-440); RBC 3.43 M/ul (4.3-5.7); RDW 25.8 (10.5-15.0)
[2024-06-04 00:46] LABS: INR 1.99 (0.80-1.30); PROTIME 21.4 Sec (11.2-14.2)
[2024-06-04 00:54] LABS: ALBUMIN 2.8 g/dL (3.4-5.0); ALBUMIN/GLOBULIN RATIO 0.52 (1.1-2.4); ANION GAP 15.3 (7-21); BILIRUBIN, TOTAL 5.5 mg/dL (0.2-1.0); BUN/CREATININE RATIO 4.34 (6.0-28.6); CALCIUM 8.1 mg/dL (8.5-10.1); CREATININE, SERUM 0.69 mg/dL (0.55-1.02); POTASSIUM 3.3 mmol/L (3.5-5.1); PROTEIN, TOTAL 8.2 g/dL (6.4-8.2)
[2024-06-04] MEDS ORDERED: ondansetron HCL 4 MG/2 ML VIAL IV ONE (01:00)
[2024-06-04] MEDS ORDERED: POTASSIUM CHLORIDE 10 MEQ TABCR PO ONE (01:15)
[2024-06-04] MEDS ORDERED: SODIUM CHLORIDE 0.9% 1,000 ML IV PRN (01:15)
[2024-06-04] MEDS ORDERED: MAGNESIUM SULFATE 2 GM/50 ML BAG IV ONE (02:15)
[2024-06-04 02:17] LABS: BILIRUBIN, URINE POSITIVE (negative); BLOOD/HGB, URINE NEGATIVE (Negative); KETONE, URINE TRACE (Negative); LEUK ESTERASE, URINE MODERATE (negative); NITRITE, URINE POSITIVE (negative)
[2024-06-04] MEDS ORDERED: LACTULOSE10 GM/151 PO (02:20)
[2024-06-04] MEDS ORDERED: HYDROXYZINE HCL25 MG PO (02:21)
[2024-06-04] MEDS ORDERED: MAGNESIUM OXID400 M1 PO (02:22)
[2024-06-04 02:28] LABS: BACTERIA, URINE 3+ /hpf (negative); CASTS, URINE NONE SEEN \\lpf; COLLECTION TYPE, URINE CLEAN CATCH; CRYSTALS, URINE NONE SEEN (0-1+); EPITHELIAL CELLS, URINE SQUAMOUS 2+ /lpf (0-1+); REFLEX CULTURE, URINE No (No)
[2024-06-04] MEDS ORDERED: NITROFURANTOIN MONOHYD MACROCR 100 MG HOME.PACK PO ONE (02:45)
[2024-06-04] MEDS ORDERED: MACROBID 100 M100 MG PO (02:46)
[2024-06-04 03:13] VITALS: BP 104/65
--- NOTE | 2024-06-05 17:46 | EKG ---
[facility] [address] [place] [address] Signed Sinus tachycardia Left posterior fascicular block Anterior infarct , age undetermined Abnormal ECG When compared with ECG of 17-JUN-2023 14:43, Vent. rate has increased BY 57 BPM Anterior infarct is now present Nonspecific T wave abnormality now evident in Inferior leads Nonspecific T wave abnormality no longer evident in Anterolateral leads Confirmed by Chris Palmer DO ([id number]) on 06/05/2024 5:46:19 PM Electronically Signed By: CHRIS PALMER DO 06/05/24 1746 PATIENT NAME: RUSSELL LEI SONYA Electrocardiogram DATE OF : 89 PHYSICIAN: CHRIS PALMER DO REPORT #: [id number] REPORT IS CONFIDENTIAL AND NOT TO BE RELEASED WITHOUT AUTHORIZATION
== END 2024-06-04 03:14 | disposition home or self-care (01) ==
LOC: ED 22:51
PROVIDERS: Family Medicine
DX: E83.42 Hypomagnesemia (principal); K70.30 Alcoholic cirrhosis of liver without ascites; D69.6 Thrombocytopenia, unspecified
CPT/HCPCS: 36415; 71045; 80053; 81001; 82140; 83735; 84484; 85025; 85060; 85610; 93005; 93010; 96374; 96375; 99285-25; A9270; G0480; J2405; J3475; J7030

== ENCOUNTER 2024-07-25 18:29 | Inpatient (IN) | payer OTHER ==
[~2024-07-25] VITALS: Ht 165.1 cm; Wt 67.0 kg
[~2024-07-25 18:29] MED LIST changes: +HYDROXYZINE HCL25 MG PO; +MACROBID 100 M100 MG PO; +MAGNESIUM OXID400 M1 PO
[2024-07-25] MEDS ORDERED: PANTOPRAZOLE SO40 MG PO (19:49)
[2024-07-25] MEDS ORDERED: KLOR-CON M2020 MEQ PO (19:49)
[2024-07-25] MEDS ORDERED: FEROSUL325 MG PO (19:49)
[2024-07-25] MEDS ORDERED: LACTATED RINGER'S 1,000 ML IV ONE ×2 (20:00→22:30)
[2024-07-25 20:04] LABS: BASOPHILS 0.4 % (0.1-1.2); EOSINOPHILS 6.3 % (0.7-5.8); HEMATOCRIT 28.5 % (34.1-44.9); HEMOGLOBIN 9.7 g/dL (11.2-15.7); LYMPHOCYTES 5.6 % (19.3-51.7); MCH 31.7 PG (25.6-32.2); MCV 93.1 fL (79.4-94.8); MONOCYTES 2.8 % (4.7-12.5); NEUTROPHILS 83.7 % (34.0-71.1); RBC 3.06 M/uL (3.93-5.22)
[2024-07-25] MEDS ORDERED: FAMOTIDINE 20 MG/ 2 ML VIAL IV ONE (20:15)
[2024-07-25] MEDS ORDERED: ondansetron HCL 4 MG/2 ML VIAL IV ONE (20:15)
[2024-07-25 20:16] LABS: ALBUMIN/GLOBULIN RATIO 0.35 (1.1-2.4); ANION GAP 14.7 (7-21); BILIRUBIN, TOTAL 17.3 mg/dL (0.2-1.0); BUN/CREATININE RATIO 8.73 (6.0-28.6); CREATININE, SERUM 1.03 mg/dL (0.55-1.02); POTASSIUM 3.7 mmol/L (3.5-5.1); PROTEIN, TOTAL 7.7 g/dL (6.4-8.2)
[2024-07-25 20:23] LABS: PLATELET COUNT 28 K/uL (182-369)
[2024-07-25 22:21] LABS: BILIRUBIN, URINE POSITIVE (negative); BLOOD/HGB, URINE TRACE-L (Negative); KETONE, URINE TRACE (Negative); LEUK ESTERASE, URINE NEGATIVE (negative); NITRITE, URINE POSITIVE (negative); PH, URINE 7.5 (5-7)
[2024-07-25 22:27] LABS: HEMATOCRIT 25.3 % (34.1-44.9); HEMOGLOBIN 8.6 g/dL (11.2-15.7)
[2024-07-25 22:27] LABS: BACTERIA, URINE 3+ /hpf (negative); CASTS, URINE NONE SEEN \\lpf; COLLECTION TYPE, URINE CLEAN CATCH; CRYSTALS, URINE NONE SEEN (0-1+); RED BLOOD CELLS, URINE 0-1 /hpf (0-5); WHITE BLOOD CELLS, URINE 0-1 /HPF (0-5)
[2024-07-25] MEDS ORDERED: HYDROmorphone HCL 1 MG/ML SYR IV PRN (22:30)
[2024-07-25] MEDS ORDERED: CEFTRIAXONE SODIUM 2 GM in SODIUM CHLORIDE 0.9% 100 ML IV ONE (22:30)
[2024-07-25 22:41] LABS: REFLEX CULTURE, URINE No (No)
[2024-07-25 22:43] LABS: LACTIC ACID, BLOOD 4.4 mmol/L (0.4-2.0)
[2024-07-25 22:45] LABS: AMPHETAMINES, URINE NEGATIVE (NEGATIVE); BENZODIAZEPINE, URINE NEGATIVE (NEGATIVE); BUPRENORPHINE, URINE NEGATIVE (NEGATIVE); CANNABINOID, URINE NEGATIVE (NEGATIVE); COCAINE, URINE NEGATIVE (NEGATIVE); ECSTASY, URINE NEGATIVE (NEGATIVE); FENTANYL, URINE NEGATIVE (NEGATIVE); METHADONE, URINE NEGATIVE (NEGATIVE); OPIATES, URINE NEGATIVE (NEGATIVE); OXYCODONE, URINE NEGATIVE (NEGATIVE); PHENCYCLIDINE, URINE NEGATIVE (NEGATIVE)
[2024-07-25] MEDS ORDERED: metroNIDAZOLE/SODIUM CHLORIDE 500 MG/100 ML PIGGYBACK IV ONE (23:00)
[2024-07-26] VITALS (7 sets, daily range): BP systolic 81–120; BP diastolic 44–74
[2024-07-26] MEDS ORDERED: LACTATED RINGER'S 1,000 ML IV ONE ×2 (00:45→14:15)
[2024-07-26 00:47] LABS: ABO O; RH POSITIVE
[2024-07-26 00:48] LABS: ANTIBODY SCREEN NEGATIVE
[2024-07-26 02:59] LABS: INR 3.26 (0.80-1.30); PROTIME 31.8 Sec (11.2-14.2)
[2024-07-26] MEDS ORDERED: LACTATED RINGER'S 1,000 ML IV SCH (03:00)
[2024-07-26 03:10] LABS: PARTIAL THROMBOPLASTIN TIME 84.1 Sec (22.9-41.3)
[2024-07-26] MEDS ORDERED: HYDROXYZINE HCL25 MG PR (03:56)
[2024-07-26] MEDS ORDERED: LORazepam 2 MG/ML VIAL IV ONE (04:00)
[2024-07-26] MEDS ORDERED: LIDOCAINE 2% VISCOUS 6 ML SYR TOP ONE ×2 (04:30→12:00)
[2024-07-26 04:31] LABS: IS CROSSMATCH COMPATIBLE
[2024-07-26 06:20] LABS: BASOPHILS 0.2 % (0.1-1.2); EOSINOPHILS 0.1 % (0.7-5.8); HEMATOCRIT 21.1 % (34.1-44.9); HEMOGLOBIN 7.1 g/dL (11.2-15.7); MCH 31.3 PG (25.6-32.2); MCHC 33.6 g/dL (32.2-35.5); MONOCYTES 4.6 % (4.7-12.5); NEUTROPHILS 86.3 % (34.0-71.1); RBC 2.27 M/uL (3.93-5.22)
[2024-07-26 06:28] LABS: INR 2.35 (0.80-1.30); PROTIME 24.3 Sec (11.2-14.2)
[2024-07-26 06:38] LABS: PLATELET COUNT 29 K/uL (182-369)
[2024-07-26 06:40] LABS: LACTIC ACID, BLOOD 2.7 mmol/L (0.4-2.0)
[2024-07-26 07:25] LABS: IS CROSSMATCH COMPATIBLE
[2024-07-26] MEDS ORDERED: CALCIUM CHLORIDE 1,000 MG in DEXTROSE 5% 100 ML IV ONE (08:30)
[2024-07-26] MEDS ORDERED: ROCURONIUM BROMIDE 50 MG/5 ML SYR ONE ×2 (09:41→10:52)
[2024-07-26] MEDS ORDERED: propofoL 200 MG/20 ML VIAL ONE ×2 (09:41→11:28)
[2024-07-26] MEDS ORDERED: LIDOCAINE HCL 2% 5 ML SDV ONE (09:41)
[2024-07-26] MEDS ORDERED: fentaNYL citrate 250 MCG/5 ML VIAL ONE (09:41)
[2024-07-26] MEDS ORDERED: metroNIDAZOLE/SODIUM CHLORIDE 500 MG/100 ML PIGGYBACK IV ONE (09:45)
[2024-07-26] MEDS ORDERED: PHENYLEPHRINE HCL 10 MG/ML VIAL ONE ×3 (10:04→10:52)
[2024-07-26] MEDS ORDERED: ALBUMIN HUMAN 25% 100 ML BTL IV ONE ×2 (10:15→14:45)
[2024-07-26] MEDS ORDERED: SODIUM CHLORIDE 0.9% 300 ML IV ONE (10:19)
[2024-07-26] MEDS ORDERED: VASOPRESSIN 20 UNITS/ML VIAL ONE (10:28)
[2024-07-26 11:29] LABS: BASOPHILS 0.5 % (0.1-1.2); HEMATOCRIT 25.9 % (34.1-44.9); HEMOGLOBIN 8.8 g/dL (11.2-15.7); MCH 30.6 PG (25.6-32.2); MCV 89.9 fL (79.4-94.8); MONOCYTES 4.8 % (4.7-12.5); NEUTROPHILS 77.9 % (34.0-71.1); PLATELET COUNT 70 K/uL (182-369); RBC 2.88 M/uL (3.93-5.22)
[2024-07-26 11:39] LABS: ANION GAP 12.1 (7-21); BUN/CREATININE RATIO 10.38 (6.0-28.6); CALCIUM 8.6 mg/dL (8.5-10.1); CREATININE, SERUM 0.77 mg/dL (0.55-1.02); POTASSIUM 3.1 mmol/L (3.5-5.1)
[2024-07-26 11:51] LABS: INR 2.36 (0.80-1.30); PROTIME 24.4 Sec (11.2-14.2)
[2024-07-26] MEDS ORDERED: PROPOFOL IV SCH (11:55)
[2024-07-26] MEDS ORDERED: propofoL 100 ML IV ONE (11:56)
[2024-07-26] MEDS ORDERED: ACETAMINOPHEN 650 MG SUPP PR PRN (12:00)
[2024-07-26] MEDS ORDERED: ACETAMINOPHEN 325 MG TAB PO PRN (12:00)
[2024-07-26] MEDS ORDERED: PROCHLORPERAZINE EDISYLATE 10 MG/2 ML VIAL IV PRN (12:00)
[2024-07-26] MEDS ORDERED: DEXTROSE 5% - LACTATED RINGERS 1,000 ML IV SCH (12:00)
[2024-07-26] MEDS ORDERED: ondansetron HCL 4 MG/2 ML VIAL IV PRN (12:00)
[2024-07-26] MEDS ORDERED: HYDROmorphone HCL 1 MG/ML SYR IV PRN (12:00)
[2024-07-26] MEDS ORDERED: PANTOPRAZOLE SODIUM 40 MG/10 ML VIAL IV SCH (12:01)
[2024-07-26] MEDS ORDERED: NOREPINEPHRINE BITARTRATE 250 ML IV SCH (12:15)
--- NOTE | 2024-07-26 12:16 | NUR ---
PT NOT AVAILABLE FOR VISIT. PROVIDED PRAYER.
[2024-07-26] MEDS ORDERED: MAGNESIUM SULFATE 2 GM/50 ML BAG IV SCH (12:30)
[2024-07-26] MEDS ORDERED: POTASSIUM CHLORIDE 40 MEQ in DEXTROSE 5% 250 ML IV ONE (12:30)
[2024-07-26] MEDS ORDERED: CEFTRIAXONE SODIUM 2 GM in SODIUM CHLORIDE 0.9% 100 ML IV SCH (12:53)
[2024-07-26 13:12] LABS: HCO3, BLOOD GAS 26.4 mmol/L (22-26); O2 SATURATION, BLOOD GAS 99.1 % (95.0-100.0); PCO2, BLOOD GAS 30.8 mmHg (35-45); PH, BLOOD GAS 7.54 (7.35-7.45); PO2, BLOOD GAS 86 mmHg (80-100); TOTAL CO2, BLOOD GAS 27.3
[2024-07-26 13:13] LABS: OXYGEN RECEIVED, BLOOD GAS 40%
[2024-07-26] MEDS ORDERED: metroNIDAZOLE/SODIUM CHLORIDE 500 MG/100 ML PIGGYBACK IV SCH ×2 (14:00)
[2024-07-26 14:24] LABS: BASOPHILS 0.3 % (0.1-1.2); EOSINOPHILS 0.2 % (0.7-5.8); HEMATOCRIT 20.4 % (34.1-44.9); HEMOGLOBIN 6.8 g/dL (11.2-15.7); LYMPHOCYTES 7.8 % (19.3-51.7); MCH 30.5 PG (25.6-32.2); MCHC 33.3 g/dL (32.2-35.5); MCV 91.5 fL (79.4-94.8); MONOCYTES 3.9 % (4.7-12.5); NEUTROPHILS 86.6 % (34.0-71.1); PLATELET COUNT 101 K/uL (182-369); RBC 2.23 M/uL (3.93-5.22)
[2024-07-26] MEDS ORDERED: HUMAN PROTHROMBIN COMPLX IV ONE (14:30)
[2024-07-26] MEDS ORDERED: VASOPRESSIN 20 UNITS in DEXTROSE 5% 100 ML IV SCH (14:30)
[2024-07-26] MEDS ORDERED: DILUENT IV ONE (14:30)
[2024-07-26] MEDS ORDERED: fentaNYL citrate 100 MCG/2 ML VIAL ONE (14:57)
[2024-07-26] MEDS ORDERED: DEXTROSE IV SCH (15:00)
[2024-07-26] MEDS ORDERED: EPINEPHrine HCL 4 MG in DEXTROSE 5% 250 ML IV SCH (15:00)
[2024-07-26] MEDS ORDERED: DOBUTAMINE IV SCH (15:00)
--- NOTE | 2024-07-26 15:00 | NUR ---
Attempted to see this pt. Rapid response was called earlier. Multiple staff in room working with this pt. Visit deferred.
[2024-07-26 15:03] LABS: ALBUMIN 1.8 g/dL (3.4-5.0); ALBUMIN/GLOBULIN RATIO 0.58 (1.1-2.4); ANION GAP 9.7 (7-21); BILIRUBIN, TOTAL 10.3 mg/dL (0.2-1.0); BUN/CREATININE RATIO 9.78 (6.0-28.6); CALCIUM 7.8 mg/dL (8.5-10.1); CREATININE, SERUM 0.92 mg/dL (0.55-1.02); MAGNESIUM 2.4 mg/dL (1.8-2.4); POTASSIUM 3.7 mmol/L (3.5-5.1); PROTEIN, TOTAL 4.9 g/dL (6.4-8.2)
[2024-07-26] MEDS ORDERED: FENTANYL CITRATE-0.9 % NACL/PF 100 ML IV ONE (15:09)
[2024-07-26] MEDS ORDERED: FUROSEMIDE 40 MG/4 ML VIAL ONE (15:11)
[2024-07-26] MEDS ORDERED: FENTANYL CITRATE-0.9 % NACL/PF 1,000 MCG/100 ML BAG IV SCH (15:15)
[2024-07-26] MEDS ORDERED: FUROSEMIDE 40 MG/4 ML VIAL IV ONE (15:15)
[2024-07-26] MEDS ORDERED: MIDAZOLAM HCL 100 MG in DEXTROSE 5% 80 ML IV SCH (15:15)
[2024-07-26] MEDS ORDERED: MIDAZOLAM HCL 50 MG in DEXTROSE 5% 90 ML IV SCH (15:15)
[2024-07-26 15:28] LABS: BASE EXCESS, BLOOD GAS -2.9 mmol/L (-2-2); HCO3, BLOOD GAS 21.9 mmol/L (22-26); O2 SATURATION, BLOOD GAS 98.3 % (95.0-100.0); OXYGEN RECEIVED, BLOOD GAS 30%; PH, BLOOD GAS 7.38 (7.35-7.45); PO2, BLOOD GAS 84 mmHg (80-100); TOTAL CO2, BLOOD GAS 23.1
[2024-07-26 15:29] LABS: BASOPHILS 0.4 % (0.1-1.2); EOSINOPHILS 0.4 % (0.7-5.8); HEMATOCRIT 25.4 % (34.1-44.9); HEMOGLOBIN 8.4 g/dL (11.2-15.7); LYMPHOCYTES 8.8 % (19.3-51.7); MCH 29.8 PG (25.6-32.2); MCHC 33.1 g/dL (32.2-35.5); MCV 90.1 fL (79.4-94.8); MONOCYTES 4.7 % (4.7-12.5); NEUTROPHILS 84.5 % (34.0-71.1); PLATELET COUNT 75 K/uL (182-369); RBC 2.82 M/uL (3.93-5.22)
[2024-07-26 15:39] LABS: INR 2.11 (0.80-1.30); PROTIME 22.7 Sec (11.2-14.2)
[2024-07-26] MEDS ORDERED: fentaNYL citrate 100 MCG/2 ML VIAL IV ONE ×2 (15:45)
--- NOTE | 2024-07-26 15:58 | NUR ---
RESPONDED TO RAPID RESPONSE ALERT. PT INTUBATED AND RECEIVING CARE. DARIEN' IN [place] EXPRESSED SITUATIONALLY CONSISTENT EMOTIONS, EVIDENCED STRONG FAMILY SUPPORT NETWORK. ADDITIONAL FAMILY ARRIVED APPROXIMATELY 1550. ALL EXPRESSED SITUATIONALLY CONSISTED EMOTIONS, EXPRESSED UNDERSTANDING OF SITUATION. CABLE INSTALLER REPAIRER HELPER PROVIDED SUPPORTIVE PRESENCE, HOSPITALITY, ANXIETY CONTAINMENT, GAVE ANTICIPATORY GUIDANCE, PROVIDED PRAYER. TURNED OVER CARE TO [place].
[2024-07-26] MEDS ORDERED: HYDROCORTISONE SOD SUCCINATE 100 MG/2 ML VIAL IV STA (16:00)
[2024-07-26 16:18] LABS: BASOPHILS 0.5 % (0.1-1.2); EOSINOPHILS 0.2 % (0.7-5.8); HEMATOCRIT 20.3 % (34.1-44.9); HEMOGLOBIN 6.8 g/dL (11.2-15.7); LYMPHOCYTES 8.6 % (19.3-51.7); MCH 29.8 PG (25.6-32.2); MCHC 33.5 g/dL (32.2-35.5); MONOCYTES 2.4 % (4.7-12.5); NEUTROPHILS 87.7 % (34.0-71.1); PLATELET COUNT 69 K/uL (182-369); RBC 2.28 M/uL (3.93-5.22)
[2024-07-26 16:45] LABS: ALBUMIN 2.1 g/dL (3.4-5.0); ALBUMIN/GLOBULIN RATIO 0.88 (1.1-2.4); ANION GAP 12.7 (7-21); BILIRUBIN, TOTAL 8.7 mg/dL (0.2-1.0); CALCIUM 7.2 mg/dL (8.5-10.1); POTASSIUM 3.7 mmol/L (3.5-5.1); PROTEIN, TOTAL 4.5 g/dL (6.4-8.2)
--- NOTE | 2024-07-26 18:29 | NUR ---
SHAI MCKNIGHT CALLED ME TO TAKE OVER SUPERVISOR PRINT LINE FOR THE TRAUMA. WHEN I ARRIVED SHAI LEWIS UPDATED ME AND INTRODUCED ME TO MOM AND FINACE. PROVIDED PASTORAL CARE AND PASTORAL PRESENCE. APROXIMATLY 18 DIFFERENT FAMILY MEMBERS CAME. PROVIDED PRAYERS AND PASTORAL PRESENCE. WHEN [facility] ARRIVED WALKED THE FAMILY OUT WITH THE PT. MOM TRAVELED WITH PT. TOOK PT PHONE AND GLASSES WITH HER.
--- NOTE | 2024-07-26 19:07 | NUR ---
BLOCK CHARTING MEDICATIONS FOR RAPID RESPONSE: ALBUMIN GIVEN [id number] K CENTRA GIVEN [id number] NOREPINEPHRINE GTT START AT 1443, 25MCG/MIN MAX DOSE: 50 MCG/MIN PT DISCHARGED WITH [facility] RATE AT 45MCG/MIN VASOPRESSIN GTT START AT 1450; 0.03 UNITS/HR 1457 STOPPED 1644 RESTARTED PT DISCHARGED WITH [facility] RATE AT 0.03 DOBUTAMINE GTT 1457 RATE AT 5MCG/KG/MIN OFF AT 1500 FENTANYL PUSH OF 25MCG 1459 GTT STARTED AT 1515 RATE AT 25MCG VERSED GTT STARTED AT 1510, RATE OF 4MG/HR PT DISCHARGED WITH [facility] RATE AT 4MG PROPOFOL GTT STARTED IN OR: TO CCU AT 100 MCG/MIN 1508 STOPPED AFTER DOWNWARD TITRATION PER PARAMETERS 40 MG IV LASIX PUSH 1515 EPINEPHRINE GTT [id number] MAX 4 MIN 1 BLOOD PRODUCTS: 1 UNIT CRYO AT 1655 2 UNIT FFP 5 UNIT PRBC 100 MG IV SOLUCORTEF- SEE EMAR.
--- NOTE | 2024-07-26 19:08 | NUR ---
BLOCK CHARTING: PATIENT ARRIVED TO CCU AT 1145 FROM OR WITH MIGUEL BRANNON AND MIGUEL VOGEL. PATIENT HAD AN EXPLORATORY LAP OF ABDOMEN BUT NO RESECTION OF ANY BOWEL. UPON ARRIVAL, PATIENT WAS ON 100 MCG/MIN OF PROPOFOL BUT NO VASOPRESSORS. PATIENT'S VITALS WERE HR 90, BP 126/76 (87), RR 20 ON THE VENT WITH A 7.0 ETT, 22 AT THE TEETH. PROPOFOL AT 100 MCG/MIN UPON ARRIVAL. PATIENT RASS A -5. AROUND 1200 BLOOD PRESSURES STARTED TO BECOME SOFTER. DR. JACQUES, HOSPITIALIST AT BEDSIDE AT THIS TIME. ORDERS REC'D TO REPLACE IV POTASSIUM AND IV MAG. LEVOPHED STARTED AT 1222 AT 4 MCG/MIN. NOREPI TITRATED UP TO 12 MCG/MIN AFTER CONTINUED LOW PRESSURES. 1 L BOLUS STARTED ALSO PER DR. JACQUES. REPEAT LABS ORDERED. NEW IV SITE IN LEFT FOREARM STARTED. REPEAT CBC SHOWED BLOOD COUNTS DROPPING DOWN TO 6.8 AND 20.4. 5TH UNIT OF PRBCs ORDERED AND STARTED (SEE BLOOD CHARTING.) RAPID REPONSE CALLED AROUND 1430. RAPID INFUSER BROUGHT TO ROOM AND USED TO INFUSE THE 6TH UNIT OF PRBCs, FOLLOWED BY THE 7TH UNIT. 2 MORE UNITS OF FFP WERE ALSO INFUSED. A DOSE OF KCENTRA WAS GIVEN (SEE EMAR). ANOTHER IV SITE WAS STARTED IN LEFT HAND. MIGUEL GALEANO ARRIVED BACK TO BEDSIDE TO PLACE THE CENTRAL LINE AND HELP MANAGE THE PATIENT. DR. MILLER ALSO ARRIVES BACK TO BEDSIDE AFTER BEING REQUESTED TO RETURN TO BEDSIDE BY DR. JACQUES DURING RAPID RESPONSE. PROPOFOL WAS TURNED OFF AT THE BEGINNING OF THE RAPID RESPONSE. PATIENT WAS STARTED ON A VERSED GTT AND A FENTANYL GTT (SEE EMAR). PATIENT RECEIVED ADDITIONAL UNITS OF PRBCs, UNITS 8 & 9. PT ALSO RECEIVED IV CRYOPRECIPITATE. [facility] ARRIVED AROUND 1715 AND REPORT GIVEN TO THEM.
[2024-07-27 07:12] LABS: IS CROSSMATCH COMPATIBLE
== END 2024-07-26 17:15 | disposition short-term general hospital (02) | DRG 987 ==
LOC: ED 18:29 → CCU 18:31
PROVIDERS: Internal Medicine; Student in an Organized Health Care Education/Training Program; ADMIT Surgery; ATTEND Surgery
PROC: 30233K1 Transfusion of Nonautologous Frozen Plasma into Peripheral Vein, Percutaneous Approach (ICD-10-PCS; 2024-07-26)
PROC: 30233N1 Transfusion of Nonautologous Red Blood Cells into Peripheral Vein, Percutaneous Approach (ICD-10-PCS; 2024-07-26)
PROC: 30233R1 Transfusion of Nonautologous Platelets into Peripheral Vein, Percutaneous Approach (ICD-10-PCS; 2024-07-26)
PROC: 3E033XZ Introduction of Vasopressor into Peripheral Vein, Percutaneous Approach (ICD-10-PCS; 2024-07-26)
PROC: 0BH17EZ Insertion of Endotracheal Airway into Trachea, Via Natural or Artificial Opening (ICD-10-PCS; 2024-07-26)
PROC: 5A1935Z Respiratory Ventilation, Less than 24 Consecutive Hours (ICD-10-PCS; 2024-07-26)
PROC: 30233M1 Transfusion of Nonautologous Plasma Cryoprecipitate into Peripheral Vein, Percutaneous Approach (ICD-10-PCS; 2024-07-26)
PROC: 0D9W0ZZ Drainage of Peritoneum, Open Approach (ICD-10-PCS; principal; 2024-07-26 09:45)
DX: K72.10 Chronic hepatic failure without coma (principal); R57.0 Cardiogenic shock; R57.1 Hypovolemic shock; R57.8 Other shock; D68.9 Coagulation defect, unspecified; K70.31 Alcoholic cirrhosis of liver with ascites; F32.A Depression, unspecified; F10.20 Alcohol dependence, uncomplicated; E83.42 Hypomagnesemia; D69.6 Thrombocytopenia, unspecified; E87.6 Hypokalemia; Z90.49 Acquired absence of other specified parts of digestive tract
CPT/HCPCS: 00840; 36415; 36430; 51702; 71045; 71260; 74177; 80048; 80053; 80307; 81001; 82140; 82803; 83605; 83690; 83735; 83880; 84100; 84703; 85014; 85018; 85025; 85060; 85379; 85384; 85610; 85730; 86850; 86900; 86901; 86922; 87040; 94002; 96367; 96375; 96376; 99291; 99292; G0378; G0480; J0171; J0696; J1171; J1250; J1720; J1938; J2003; J2060; J2250; J2371; J2405; J2470; J2704; J3010; J3475; J3480; J3490; J7060; J7121; J7168; P9012; P9016; P9035; P9047; P9059; Q9967